=== PATIENT | female | born 1960 | race Caucasian/White ===

== ENCOUNTER 2023-11-26 09:00 | Inpatient (IN) | payer MEDICARE, OTHER ==
[~2023-11-26] VITALS: Ht 165.1 cm; Wt 95.5 kg
[2023-11-26] MEDS: ONDANSETRON HCL 4 MG/2 ML VIAL IV ONE (09:45)
[2023-11-26] MEDS: SODIUM CHLORIDE 0.9% 1,000 ML IV ONE ×2 (09:45→13:30)
[2023-11-26 10:05] VITALS: PULSE 109; RESP 20; O2SAT 100
[2023-11-26 10:08] LABS: Basophils # (auto) 0.1 10 ^3/uL (0-0.2); Basophils % (auto) 0.4 % (0.0-2.0); Eosinophils # (auto) 0 10 ^3/uL (0-0.8); Hematocrit 43.2 % (36.0-46.0); Hemoglobin 14.9 g/dL (12.2-16.2); Lymphocytes # (auto) 0.8 10 ^3/uL (0.4-5.4); Lymphocytes % (auto) 3.8 % (10.0-50.0); Mean Corpuscular Hemoglobin 30.5 pg (28.0-32.0); Mean Corpuscular Hgb Conc. 34.6 g/dL (32.0-36.0); Mean Corpuscular Volume 88.1 fL (80.0-100.0); Monocytes % (auto) 4.5 % (0.0-12.0); Neutrophils # (auto) 19.8 10 ^3/uL (1.6-8.6); Neutrophils % (auto) 91.3 % (37.0-80.0); Nucleated Red Blood Cells % 0.2 %; Platelet Count (auto) 242 10^3/uL (140-450); White Blood Cell 21.7 10^3/uL (4.4-10.8)
[2023-11-26 11:39] LABS: Alanine Aminotransferase 24 U/L (7-40); Albumin 4.7 g/dL (3.2-4.8); Alkaline Phosphatase 218 U/L (46-116); Anion Gap 11 (5-15); Aspartate Aminotransferase 23 U/L (13-40); Bilirubin, Total 0.8 mg/dL (0.2-1.0); Blood Urea Nitrogen 23 mg/dL (9-23); Carbon Dioxide 28 mmol/L (20-31); Chloride 107 mmol/L (98-107); Potassium 2.7 mmol/L (3.5-5.1); Sodium 146 mmol/L (136-145); Total Protein 7.6 g/dL (5.7-8.2)
[2023-11-26 11:41] LABS: Calcium 19.1 mg/dL (8.7-10.4); Glucose 426 mg/dL (74-106)
[2023-11-26] MEDS: POTASSIUM CHL 20MEQ/100ML 100 ML IV SCH ×2 (12:10→20:57)
[2023-11-26] MEDS ORDERED: NITROGLYCERIN 0.4 MG SL TAB SL PRN (13:30)
[2023-11-26] MEDS: PAMIDRONATE DISODIUM 90 MG in SOD CHL 0.45% 1,000 ML IV ONE (13:30)
[2023-11-26] MEDS: PIPERACILLIN-TAZOB 3.375GM 100 ML IV ONE (13:30)
[2023-11-26] MEDS ORDERED: DEXTROSE (50%) 50ML SYRG IV PRN (13:30)
[2023-11-26] MEDS: PANTOPRAZOLE 40 MG/10 ML VIAL INJ IV ONE (13:30)
[2023-11-26] MEDS: LACTATED RINGER'S 1,000 ML IV SCH (13:30)
[2023-11-26] MEDS: MORPHINE SULFATE INJ 2 MG/ml SYRG IV ONE (13:52)
[2023-11-26] MEDS: ONDANSETRON HCL 4 MG/2 ML VIAL IV PRN (13:53)
[2023-11-26] MEDS: InsuLIN REG 1unit/0.01ml Soln (100units/ml) IV ONE (13:56)
[2023-11-26 14:01] LABS: Magnesium 1.8 mg/dL (1.6-2.6)
[2023-11-26 14:02] LABS: Phosphorus 1.6 mg/dL (2.4-5.1)
[2023-11-26 14:32] LABS: Urine Bacteria FEW /hpf (None Seen); Urine Blood 1+ /uL (Negative); Urine Clarity Turbid (Clear); Urine Color Colorless (Yellow); Urine Protein, UAD TRACE (Negative); Urine Specific Gravity 1.012 (1.001-1.035); Urine Urobilinogen Normal (Negative); Urine WBC 13 /hpf (0 - 5); Urine pH 5.5 (5.0-9.0)
[2023-11-26 14:41] LABS: Amphetamine Screen, Urine Neg (NEGATIVE); Barbiturate Scree,Urine Neg (NEGATIVE); Benzodiazephine Screen, Urine Neg (NEGATIVE); Cannabinoid Screen, Urine Neg (NEGATIVE); Cocaine Screen, Urine Neg (NEGATIVE); Creatinine, Urine 49.65 mg/dL (30.0-125.0); Opiate Scree,Urine Neg (NEGATIVE); Phencyclidine Screen, Urine Neg (NEGATIVE)
[2023-11-26 14:44] LABS: Lactic Acid w/Reflex 2.2 mmol/L (0.4-2.0)
[2023-11-26 16:27] VITALS: BP 128/77; PULSE 101; RESP 18; TEMP 98.1; O2SAT 96
[2023-11-26 17:55] LABS: Base Excess 1.9 mmol/L (-2.0-3.0)
[2023-11-26] MEDS ORDERED: PIPERACILLIN-TAZOB 3.375GM 100 ML IV SCH (18:00)
[2023-11-26 18:08] VITALS: PULSE 93
[2023-11-26] MEDS: ACCU-CHEK COMFORT CURVE STRIP VI SCH (18:08)
[2023-11-26] MEDS: InsuLIN REG 1unit/0.01ml Soln (100units/ml) SC SCH (18:09)
[2023-11-26 19:09] LABS: Potassium 2.8 mmol/L (3.5-5.1)
[2023-11-26 19:22] LABS: Calcium 17.6 mg/dL (8.7-10.4)
[2023-11-26] MEDS ORDERED: POTASSIUM PHOSPHATE 44 MEQ in D5W 5% 250 ML IV ONE (19:45)
[2023-11-26 20:00] VITALS: PULSE 98; RESP 18; O2SAT 95
[2023-11-26] MEDS: PIPERACILLIN-TAZOB 3.375GM 100 ML IV SCH (20:07)
[2023-11-26 21:00] VITALS: BP 146/80; PULSE 102; RESP 20; TEMP 98.6; O2SAT 99
[2023-11-26] MEDS: PANTOPRAZOLE 40 MG/10 ML VIAL INJ IV SCH (21:41)
[2023-11-27] VITALS (9 sets, daily range): BP systolic 133–160; BP diastolic 67–94; PULSE 84–102; RESP 17–20; TEMP 89.9–99; O2SAT 92–100
[2023-11-27 06:48] LABS: Basophils # (auto) 0 10 ^3/uL (0-0.2); Eosinophils # (auto) 0 10 ^3/uL (0-0.8); Hematocrit 40.7 % (36.0-46.0); Hemoglobin 14.1 g/dL (12.2-16.2); Lymphocytes # (auto) 1.2 10 ^3/uL (0.4-5.4); Lymphocytes % (auto) 7.3 % (10.0-50.0); Mean Corpuscular Hemoglobin 30.9 pg (28.0-32.0); Mean Corpuscular Hgb Conc. 34.6 g/dL (32.0-36.0); Mean Corpuscular Volume 89.4 fL (80.0-100.0); Monocytes % (auto) 6.6 % (0.0-12.0); Neutrophils # (auto) 13.6 10 ^3/uL (1.6-8.6); Neutrophils % (auto) 86.1 % (37.0-80.0); Platelet Count (auto) 200 10^3/uL (140-450); Red Blood Cells 4.56 10^6/uL (4.0-5.20); Red Cell Distribution Width 13.3 % (11.8-14.3); White Blood Cell 15.9 10^3/uL (4.4-10.8)
[2023-11-27 07:10] LABS: Alanine Aminotransferase 18 U/L (7-40); Albumin 3.8 g/dL (3.2-4.8); Alkaline Phosphatase 172 U/L (46-116); Anion Gap 8 (5-15); Aspartate Aminotransferase 17 U/L (13-40); BUN/Creatinine Ratio 10.8 (10.0-20.0); Bilirubin, Total 0.5 mg/dL (0.2-1.0); Blood Urea Nitrogen 13 mg/dL (9-23); Carbon Dioxide 26 mmol/L (20-31); Glucose 168 mg/dL (74-106); Potassium 3.1 mmol/L (3.5-5.1); Total Protein 6.6 g/dL (5.7-8.2)
[2023-11-27 07:41] LABS: Chloride 119 mmol/L (98-107); Sodium 153 mmol/L (136-145)
[2023-11-27 07:42] LABS: Calcium 17.5 mg/dL (8.7-10.4)
[2023-11-27 07:52] LABS: Lipase 49 U/L (12-53)
[2023-11-27] MEDS: POTASSIUM PHOSPHATE 44 MEQ in D5W 5% 250 ML IV ONE (09:09)
[2023-11-27] MEDS: SOD CHL 0.45% 1,000 ML IV SCH (16:47)
[2023-11-28] VITALS (10 sets, daily range): BP systolic 121–161; BP diastolic 44–93; PULSE 72–95; RESP 13–18; TEMP 98–98.9; O2SAT 95–100
[2023-11-28 08:17] LABS: Basophils # (auto) 0 10 ^3/uL (0-0.2); Basophils % (auto) 0.1 % (0.0-2.0); Eosinophils # (auto) 0 10 ^3/uL (0-0.8); Eosinophils % (auto) 0.1 % (0.0-7.0); Hematocrit 44.9 % (36.0-46.0); Hemoglobin 15.2 g/dL (12.2-16.2); Lymphocytes # (auto) 1.5 10 ^3/uL (0.4-5.4); Lymphocytes % (auto) 14.2 % (10.0-50.0); Mean Corpuscular Hemoglobin 30.9 pg (28.0-32.0); Mean Corpuscular Hgb Conc. 33.8 g/dL (32.0-36.0); Mean Corpuscular Volume 91.2 fL (80.0-100.0); Monocytes # (auto) 0.7 10 ^3/uL (0-1.3); Monocytes % (auto) 6.4 % (0.0-12.0); Neutrophils # (auto) 8.6 10 ^3/uL (1.6-8.6); Neutrophils % (auto) 79.2 % (37.0-80.0); Nucleated Red Blood Cells % 0.1 %; Platelet Count (auto) 178 10^3/uL (140-450); Red Blood Cells 4.93 10^6/uL (4.0-5.20); Red Cell Distribution Width 13.6 % (11.8-14.3); White Blood Cell 10.8 10^3/uL (4.4-10.8)
[2023-11-28 08:26] LABS: Anion Gap 12 (5-15); Carbon Dioxide 25 mmol/L (20-31); Chloride 118 mmol/L (98-107); Potassium 3.5 mmol/L (3.5-5.1); Sodium 155 mmol/L (136-145)
[2023-11-28 08:32] LABS: BUN/Creatinine Ratio 15.1 (10.0-20.0); Blood Urea Nitrogen 22 mg/dL (9-23); Glucose 196 mg/dL (74-106)
[2023-11-28 08:42] LABS: Calcium 14.8 mg/dL (8.7-10.4)
[2023-11-28 09:43] LABS: Hepatitis B Surface Antigen Negative (Negative)
[2023-11-28 10:03] LABS: Hepatitis C Antibody Negative (Negative)
[2023-11-28] MEDS: hydrALAZINE HCL 20 MG/ML VL IV PRN (17:44)
[2023-11-29] VITALS (8 sets, daily range): BP systolic 127–148; BP diastolic 47–83; PULSE 68–96; RESP 14–16; TEMP 97.9–98.8; O2SAT 96–98
[2023-11-29 07:27] LABS: Alanine Aminotransferase 41 U/L (7-40); Albumin 3.6 g/dL (3.2-4.8); Alkaline Phosphatase 149 U/L (46-116); Anion Gap 7 (5-15); Aspartate Aminotransferase 39 U/L (13-40); BUN/Creatinine Ratio 14.8 (10.0-20.0); Bilirubin, Total 1.2 mg/dL (0.2-1.0); Blood Urea Nitrogen 20 mg/dL (9-23); Carbon Dioxide 27 mmol/L (20-31); Chloride 116 mmol/L (98-107); Glucose 168 mg/dL (74-106); Potassium 3.2 mmol/L (3.5-5.1)
[2023-11-29 07:28] LABS: Total Protein 5.9 g/dL (5.7-8.2)
[2023-11-29 07:29] LABS: Sodium 150 mmol/L (136-145)
[2023-11-29 07:34] LABS: Calcium 13.2 mg/dL (8.7-10.4)
[2023-11-29 08:06] LABS: Immunoglobulin A 234 mg/dL (87-352); Immunoglobulin G, Serum 899 mg/dL (586-1602); Immunoglobulin M 182 mg/dL (26-217)
[2023-11-29] MEDS ORDERED: POTASSIUM CHL 20 Meq TABLET PO ONE (10:30)
[2023-11-29] MEDS: cefTRIAXone 1GM/50ML D5W 50 ML IV ONE (11:08)
[2023-11-29] MEDS: POTASSIUM EFFERVESENT TAB 25 MEQ PO ONE (11:41)
[2023-11-29] MEDS: SOD CHL 0.45% 1,000 ML IV SCH (11:49)
[2023-11-29] MEDS: metroNIDAZOLE 500MG/100ML 100 ML IV SCH (14:39)
[2023-11-30] VITALS (8 sets, daily range): BP systolic 112–151; BP diastolic 48–69; PULSE 77–90; RESP 13–19; TEMP 97.8–98.4; O2SAT 96–99
[2023-11-30 05:08] LABS: Albumin 2.6 g/dL (2.9-4.4); Alpha-1-Globulin 0.3 g/dL (0.0-0.4); Alpha-2-Globulin 0.9 g/dL (0.4-1.0); Globulin Total 3.3 g/dL (2.2-3.9); Protein Total Serum 5.9 g/dL (6.0-8.5)
[2023-11-30 07:01] LABS: Alanine Aminotransferase 39 U/L (7-40); Albumin 3.3 g/dL (3.2-4.8); Alkaline Phosphatase 126 U/L (46-116); Anion Gap 7 (5-15); Aspartate Aminotransferase 26 U/L (13-40); BUN/Creatinine Ratio 10.2 (10.0-20.0); Blood Urea Nitrogen 12 mg/dL (9-23); Calcium 12.8 mg/dL (8.7-10.4); Carbon Dioxide 24 mmol/L (20-31); Chloride 113 mmol/L (98-107); Glucose 126 mg/dL (74-106); Potassium 3.1 mmol/L (3.5-5.1); Sodium 144 mmol/L (136-145)
[2023-11-30 07:02] LABS: Bilirubin, Total 0.8 mg/dL (0.2-1.0); Total Protein 5.8 g/dL (5.7-8.2)
[2023-11-30] MEDS: cefTRIAXone 1GM/50ML D5W 50 ML IV SCH (07:52)
[2023-11-30] MEDS: MAGNESIUM SULFATE 1GM/100ML 100 ML IV SCH (14:11)
[2023-11-30] MEDS: POTASSIUM EFFERVESENT TAB 25 MEQ PO SCH (14:18)
[2023-12-01 01:00] VITALS: BP 127/65; PULSE 78; RESP 18; TEMP 98.2; O2SAT 99
[2023-12-01 05:00] VITALS: BP 125/65; PULSE 78; RESP 20; TEMP 97.8; O2SAT 100
[2023-12-01 08:06] LABS: AFP Serum Tumor Marker 2.5 ng/mL (0.0-9.2); CA 27.29 19.4 U/mL (0.0-38.6); Cancer Antigen (CA) 125 46.1 U/mL (0.0-38.1)
[2023-12-01 09:00] VITALS: BP 139/78; PULSE 77; RESP 17; TEMP 97.1; O2SAT 99
[2023-12-01 13:00] VITALS: BP 146/55; PULSE 79; RESP 17; TEMP 97.5; O2SAT 99
[2023-12-01 13:10] LABS: Alanine Aminotransferase 33 U/L (7-40); Albumin 3.4 g/dL (3.2-4.8); Alkaline Phosphatase 129 U/L (46-116); Anion Gap 7 (5-15); Aspartate Aminotransferase 24 U/L (13-40); BUN/Creatinine Ratio 12.9 (10.0-20.0); Blood Urea Nitrogen 15 mg/dL (9-23); Carbon Dioxide 25 mmol/L (20-31); Chloride 111 mmol/L (98-107); Glucose 219 mg/dL (74-106); Sodium 143 mmol/L (136-145)
[2023-12-01 13:11] LABS: Bilirubin, Total 0.5 mg/dL (0.2-1.0); Total Protein 5.7 g/dL (5.7-8.2)
[2023-12-01 13:19] LABS: Calcium 13.1 mg/dL (8.7-10.4)
[2023-12-01 17:00] VITALS: BP 135/58; PULSE 75; RESP 17; TEMP 97.6; O2SAT 96
[2023-12-01] MEDS: POTASSIUM CHL 20MEQ/100ML 100 ML IV ONE (18:44)
[2023-12-02 01:00] VITALS: BP 130/52; PULSE 85; RESP 16; TEMP 98; O2SAT 95
[2023-12-02 05:00] VITALS: BP 104/52; PULSE 77; RESP 16; TEMP 98; O2SAT 98
[2023-12-02 07:07] LABS: RPR Non Reactive (Non Reactive)
[2023-12-02 08:06] LABS: Anion Gap 9 (5-15); Carbon Dioxide 18 mmol/L (20-31)
[2023-12-02 08:08] LABS: Calcium 9.2 mg/dL (8.7-10.4)
[2023-12-02 08:12] LABS: Glucose 123 mg/dL (74-106)
[2023-12-02 08:13] LABS: BUN/Creatinine Ratio 9.9 (10.0-20.0); Blood Urea Nitrogen 8 mg/dL (9-23)
[2023-12-02 08:15] LABS: Chloride 121 mmol/L (98-107); Sodium 148 mmol/L (136-145)
[2023-12-02 08:18] LABS: Potassium 2.2 mmol/L (3.5-5.1)
[2023-12-02] MEDS ORDERED: POTASSIUM CHL 20MEQ/100ML 100 ML IV SCH (08:45)
[2023-12-02 09:00] VITALS: BP 130/56; PULSE 80; RESP 18; TEMP 98; O2SAT 99
[2023-12-02] MEDS: POTASSIUM CHL 20 Meq TABLET PO ONE (09:52)
[2023-12-02] MEDS: POTASSIUM CHL 20MEQ/100ML 100 ML IV SCH (09:53)
[2023-12-02 12:49] LABS: Chloride 113 mmol/L (98-107); Potassium 4.2 mmol/L (3.5-5.1); Sodium 141 mmol/L (136-145)
[2023-12-02 12:50] LABS: Anion Gap 5 (5-15); Carbon Dioxide 23 mmol/L (20-31)
[2023-12-02 12:55] LABS: BUN/Creatinine Ratio 6.6 (10.0-20.0); Blood Urea Nitrogen 8 mg/dL (9-23); Glucose 251 mg/dL (74-106)
[2023-12-02 13:00] VITALS: BP 136/73; PULSE 91; RESP 20; TEMP 98.2; O2SAT 96
[2023-12-02 13:26] LABS: Calcium 13.8 mg/dL (8.7-10.4)
[2023-12-02] MEDS: SOD CHL 0.45% 1,000 ML IV SCH (13:32)
[2023-12-02] MEDS: SODIUM CHLORIDE 0.9% 1,000 ML IV ONE (15:24)
[2023-12-02 17:00] VITALS: BP 151/59; PULSE 85; RESP 20; TEMP 98.1; O2SAT 96
[2023-12-02 21:00] VITALS: BP 107/74; PULSE 89; RESP 16; TEMP 98; O2SAT 98
[2023-12-03] VITALS (7 sets, daily range): BP systolic 81–125; BP diastolic 48–70; PULSE 76–88; RESP 16–20; TEMP 97.6–98.2; O2SAT 96–98
[2023-12-03 11:56] LABS: Chloride 113 mmol/L (98-107); Potassium 3.2 mmol/L (3.5-5.1); Sodium 142 mmol/L (136-145)
[2023-12-03 11:57] LABS: Anion Gap 7 (5-15); Carbon Dioxide 22 mmol/L (20-31)
[2023-12-03 12:02] LABS: Alanine Aminotransferase 93 U/L (7-40); Albumin 3.6 g/dL (3.2-4.8); Alkaline Phosphatase 130 U/L (46-116); Aspartate Aminotransferase 98 U/L (13-40); BUN/Creatinine Ratio 7.1 (10.0-20.0); Bilirubin, Total 0.3 mg/dL (0.2-1.0); Blood Urea Nitrogen 8 mg/dL (9-23); Carbon Dioxide 22 mmol/L (20-31); Glucose 213 mg/dL (74-106); Potassium 3.2 mmol/L (3.5-5.1); Sodium 141 mmol/L (136-145); Total Protein 6.3 g/dL (5.7-8.2)
[2023-12-03 12:32] LABS: Anion Gap 7 (5-15); BUN/Creatinine Ratio 6.4 (10.0-20.0); Blood Urea Nitrogen 7 mg/dL (9-23); Chloride 112 mmol/L (98-107)
[2023-12-03] MEDS: SODIUM CHLORIDE 0.9% 1,000 ML IV SCH (12:48)
[2023-12-03] MEDS: POTASSIUM CHL 20 Meq TABLET PO ONE (21:05)
[2023-12-03] MEDS: CALCITONIN 400unit/2ml Vial (200unit/ml) SC SCH (21:09)
[2023-12-04] VITALS (7 sets, daily range): BP systolic 114–131; BP diastolic 64–74; PULSE 74–102; RESP 16–22; TEMP 97.8–98.3; O2SAT 94–99
[2023-12-04 08:09] LABS: Basophils # (auto) 0 10 ^3/uL (0-0.2); Basophils % (auto) 0.4 % (0.0-2.0); Eosinophils # (auto) 0.3 10 ^3/uL (0-0.8); Eosinophils % (auto) 5.5 % (0.0-7.0); Hematocrit 38.3 % (36.0-46.0); Hemoglobin 12.8 g/dL (12.2-16.2); Lymphocytes # (auto) 1.4 10 ^3/uL (0.4-5.4); Mean Corpuscular Hemoglobin 30.5 pg (28.0-32.0); Mean Corpuscular Hgb Conc. 33.4 g/dL (32.0-36.0); Mean Corpuscular Volume 91.3 fL (80.0-100.0); Monocytes # (auto) 0.5 10 ^3/uL (0-1.3); Neutrophils % (auto) 63.1 % (37.0-80.0); Nucleated Red Blood Cells % 0.1 %; Platelet Count (auto) 166 10^3/uL (140-450); Red Cell Distribution Width 13.6 % (11.8-14.3); White Blood Cell 6.3 10^3/uL (4.4-10.8)
[2023-12-04 08:40] LABS: INR 1.07 (0.9-1.15); Partial Thromboplastin Time 21.1 SEC (24.5-34.5); Prothrombin Time 11.3 sec (9.3-11.8)
[2023-12-04] MEDS: DOCUSATE SOD 100 MG CAP PO PRN (09:46)
[2023-12-04] MEDS: MORPHINE SULFATE INJ 2 MG/ml SYRG IV PRN (09:49)
[2023-12-04 10:27] LABS: Chloride 116 mmol/L (98-107); Potassium 3.2 mmol/L (3.5-5.1); Sodium 145 mmol/L (136-145)
[2023-12-04 10:28] LABS: Anion Gap 5 (5-15); Carbon Dioxide 24 mmol/L (20-31)
[2023-12-04] MEDS: ZOLEDRONIC ACID 4 MG in SODIUM CHL 0.9% 100 ML IV ONE ×2 (10:31→17:53)
[2023-12-04 10:33] LABS: Blood Urea Nitrogen 9 mg/dL (9-23); Glucose 119 mg/dL (74-106)
[2023-12-04 10:39] LABS: Calcium 14.3 mg/dL (8.7-10.4)
[2023-12-04 16:30] LABS: Alanine Aminotransferase 83 U/L (7-40); Albumin 3.6 g/dL (3.2-4.8); Alkaline Phosphatase 137 U/L (46-116); Anion Gap 6 (5-15); Aspartate Aminotransferase 57 U/L (13-40); BUN/Creatinine Ratio 7.9 (10.0-20.0); Blood Urea Nitrogen 9 mg/dL (9-23); Carbon Dioxide 21 mmol/L (20-31); Chloride 112 mmol/L (98-107); Glucose 265 mg/dL (74-106); Potassium 3.4 mmol/L (3.5-5.1); Sodium 139 mmol/L (136-145)
[2023-12-04 16:31] LABS: Bilirubin, Total 0.3 mg/dL (0.2-1.0); Total Protein 6.2 g/dL (5.7-8.2)
[2023-12-04 16:41] LABS: Calcium 13.1 mg/dL (8.7-10.4)
[2023-12-04] MEDS: POTASSIUM CHL 20 Meq TABLET PO ONE (18:45)
[2023-12-05] VITALS (11 sets, daily range): BP systolic 99–133; BP diastolic 58–73; PULSE 62–86; RESP 12–22; TEMP 97.9–98.4; O2SAT 93–99
[2023-12-05 07:48] LABS: Alanine Aminotransferase 70 U/L (7-40); Albumin 3.4 g/dL (3.2-4.8); Alkaline Phosphatase 136 U/L (46-116); Anion Gap 8 (5-15); BUN/Creatinine Ratio 6.9 (10.0-20.0); Blood Urea Nitrogen 7 mg/dL (9-23); Calcium 12.1 mg/dL (8.7-10.4); Carbon Dioxide 21 mmol/L (20-31); Chloride 115 mmol/L (98-107); Glucose 147 mg/dL (74-106); Potassium 3.3 mmol/L (3.5-5.1); Sodium 144 mmol/L (136-145)
[2023-12-05 07:49] LABS: Aspartate Aminotransferase 49 U/L (13-40); Bilirubin, Total 0.3 mg/dL (0.2-1.0); Total Protein 5.9 g/dL (5.7-8.2)
[2023-12-05] MEDS: POTASSIUM EFFERVESENT TAB 25 MEQ PO ONE (08:15)
[2023-12-05 09:57] LABS: Urine Bacteria None Seen /hpf (None Seen)
[2023-12-05 10:44] LABS: Urine Blood Negative /uL (Negative); Urine Clarity Clear (Clear); Urine Color Light-Yellow (Yellow); Urine Protein, UAD Negative (Negative); Urine Specific Gravity 1.007 (1.001-1.035); Urine Urobilinogen Normal (Negative); Urine WBC 1 /hpf (0 - 5)
[2023-12-05] MEDS: MAGNESIUM SULFATE 1GM/100ML 100 ML IV SCH (12:26)
[2023-12-05] MEDS ORDERED: GLYCOPYRROLATE 0.2 MG/ML 1ML VIAL ONE (13:04)
[2023-12-05] MEDS ORDERED: fentaNYL CITRATE 100 MCG/2 ML VL ONE (13:04)
[2023-12-05] MEDS ORDERED: PROPOFOL 10 MG/ML 20 ML IV ONE (13:04)
[2023-12-05] MEDS ORDERED: MIDAZOLAM HCL 2MG/2ML 2ml VIAL (1mg/ml) ONE (13:04)
[2023-12-05] MEDS ORDERED: ONDANSETRON HCL 4 MG/2 ML VIAL ONE (13:04)
[2023-12-05] MEDS: ACCU-CHEK COMFORT CURVE STRIP VI ONE (13:45)
[2023-12-05] MEDS: POTASSIUM CHLORIDE 40 MEQ, LIDOCAINE 1% (LOCAL ANESTH.) 4 ML in SODIUM CHL 0.9% 250 ML IV ONE (18:13)
[2023-12-06] VITALS (8 sets, daily range): BP systolic 112–136; BP diastolic 54–93; PULSE 64–89; RESP 17–20; TEMP 97.2–98.2; O2SAT 96–100
[2023-12-06 07:52] LABS: Alanine Aminotransferase 53 U/L (7-40); Albumin 3.5 g/dL (3.2-4.8); Alkaline Phosphatase 135 U/L (46-116); Anion Gap 7 (5-15); Aspartate Aminotransferase 28 U/L (13-40); BUN/Creatinine Ratio 9.6 (10.0-20.0); Blood Urea Nitrogen 10 mg/dL (9-23); Calcium 11.5 mg/dL (8.7-10.4); Carbon Dioxide 20 mmol/L (20-31); Chloride 116 mmol/L (98-107); Glucose 173 mg/dL (74-106); Potassium 3.6 mmol/L (3.5-5.1); Sodium 143 mmol/L (136-145)
[2023-12-06 07:53] LABS: Bilirubin, Total 0.3 mg/dL (0.2-1.0)
[2023-12-06] MEDS: POTASSIUM EFFERVESENT TAB 25 MEQ PO SCH (10:14)
[2023-12-07] VITALS (7 sets, daily range): BP systolic 98–130; BP diastolic 51–79; PULSE 73–89; RESP 14–21; TEMP 97.5–98.2; O2SAT 96–98
[2023-12-07 07:19] LABS: Basophils # (auto) 0 10 ^3/uL (0-0.2); Basophils % (auto) 0.4 % (0.0-2.0); Eosinophils # (auto) 0.1 10 ^3/uL (0-0.8); Eosinophils % (auto) 1.1 % (0.0-7.0); Hemoglobin 11.4 g/dL (12.2-16.2); Lymphocytes # (auto) 1.6 10 ^3/uL (0.4-5.4); Lymphocytes % (auto) 21.1 % (10.0-50.0); Mean Corpuscular Hemoglobin 31.6 pg (28.0-32.0); Mean Corpuscular Hgb Conc. 34.6 g/dL (32.0-36.0); Mean Corpuscular Volume 91.2 fL (80.0-100.0); Monocytes # (auto) 0.4 10 ^3/uL (0-1.3); Monocytes % (auto) 5.5 % (0.0-12.0); Neutrophils # (auto) 5.4 10 ^3/uL (1.6-8.6); Neutrophils % (auto) 71.9 % (37.0-80.0); Platelet Count (auto) 149 10^3/uL (140-450); Red Blood Cells 3.61 10^6/uL (4.0-5.20); Red Cell Distribution Width 13.6 % (11.8-14.3); White Blood Cell 7.6 10^3/uL (4.4-10.8)
[2023-12-07 07:20] LABS: INR 1.1 (0.9-1.15); Partial Thromboplastin Time 23.5 SEC (24.5-34.5); Prothrombin Time 11.6 sec (9.3-11.8)
[2023-12-07 07:44] LABS: Alanine Aminotransferase 39 U/L (7-40); Alkaline Phosphatase 134 U/L (46-116); Anion Gap 7 (5-15); Blood Urea Nitrogen 7 mg/dL (9-23); Calcium 11.2 mg/dL (8.7-10.4); Carbon Dioxide 19 mmol/L (20-31); Chloride 114 mmol/L (98-107); Glucose 154 mg/dL (74-106); Potassium 3.3 mmol/L (3.5-5.1); Sodium 140 mmol/L (136-145)
[2023-12-07 07:45] LABS: Albumin 3.4 g/dL (3.2-4.8); Aspartate Aminotransferase 21 U/L (13-40); Bilirubin, Total 0.3 mg/dL (0.2-1.0); Total Protein 5.7 g/dL (5.7-8.2)
[2023-12-07] MEDS ORDERED: ACETAMINOPHEN 325 MG TAB PO PRN (14:45)
[2023-12-07] MEDS: ENOXAPARIN SOD 40 MG/0.4 ML SYRINGE SC ONE (21:09)
[2023-12-07] MEDS: SODIUM CHLORIDE 0.9% 1,000 ML IV SCH (23:50)
[2023-12-08] VITALS (9 sets, daily range): BP systolic 104–123; BP diastolic 54–66; PULSE 74–94; RESP 13–18; TEMP 97.7–98.1; O2SAT 96–99
[2023-12-08 07:44] LABS: Alanine Aminotransferase 36 U/L (7-40); Albumin 3.3 g/dL (3.2-4.8); Alkaline Phosphatase 144 U/L (46-116); Anion Gap 6 (5-15); Aspartate Aminotransferase 24 U/L (13-40); BUN/Creatinine Ratio 6.4 (10.0-20.0); Bilirubin, Total 0.4 mg/dL (0.2-1.0); Blood Urea Nitrogen 6 mg/dL (9-23); Calcium 11.4 mg/dL (8.7-10.4); Carbon Dioxide 22 mmol/L (20-31); Chloride 112 mmol/L (98-107); Glucose 138 mg/dL (74-106); Sodium 140 mmol/L (136-145); Total Protein 5.5 g/dL (5.7-8.2)
[2023-12-08] MEDS: MAGNESIUM SULFATE 1GM/100ML 100 ML IV ONE (08:24)
[2023-12-08] MEDS: ENOXAPARIN SOD 40 MG/0.4 ML SYRINGE SC SCH (10:13)
[2023-12-09] VITALS (7 sets, daily range): BP systolic 101–128; BP diastolic 36–67; PULSE 70–91; RESP 18–20; TEMP 97.6–99; O2SAT 97–99
[2023-12-09 07:15] LABS: Alanine Aminotransferase 29 U/L (7-40); Alkaline Phosphatase 140 U/L (46-116); Anion Gap 7 (5-15); Aspartate Aminotransferase 19 U/L (13-40); BUN/Creatinine Ratio 6.7 (10.0-20.0); Blood Urea Nitrogen 6 mg/dL (9-23); Calcium 11.7 mg/dL (8.7-10.4); Carbon Dioxide 21 mmol/L (20-31); Chloride 111 mmol/L (98-107); Glucose 173 mg/dL (74-106); Potassium 3.8 mmol/L (3.5-5.1); Sodium 139 mmol/L (136-145)
[2023-12-09 07:16] LABS: Albumin 3.3 g/dL (3.2-4.8); Bilirubin, Total 0.4 mg/dL (0.2-1.0); Total Protein 5.6 g/dL (5.7-8.2)
[2023-12-09] MEDS: LACTATED RINGER'S 1,000 ML IV SCH (17:58)
[2023-12-10] VITALS (8 sets, daily range): BP systolic 103–125; BP diastolic 52–76; PULSE 75–103; RESP 18–20; TEMP 97.6–98.3; O2SAT 95–100
[2023-12-10 06:36] LABS: Alanine Aminotransferase 26 U/L (7-40); Albumin 3.6 g/dL (3.2-4.8); Alkaline Phosphatase 150 U/L (46-116); Anion Gap 6 (5-15); Aspartate Aminotransferase 20 U/L (13-40); Bilirubin, Total 0.4 mg/dL (0.2-1.0); Calcium 11.7 mg/dL (8.7-10.4); Carbon Dioxide 20 mmol/L (20-31); Chloride 112 mmol/L (98-107); Glucose 140 mg/dL (74-106); Potassium 4.2 mmol/L (3.5-5.1); Sodium 138 mmol/L (136-145); Total Protein 5.9 g/dL (5.7-8.2)
[2023-12-10 06:46] LABS: BUN/Creatinine Ratio 5.7 (10.0-20.0); Blood Urea Nitrogen < 5 mg/dL (9-23)
[2023-12-11] VITALS (7 sets, daily range): BP systolic 106–130; BP diastolic 45–72; PULSE 64–86; RESP 17–20; TEMP 97.7–98.5; O2SAT 96–99
[2023-12-11 07:56] LABS: Basophils # (auto) 0 10 ^3/uL (0-0.2); Basophils % (auto) 0.7 % (0.0-2.0); Eosinophils # (auto) 0.1 10 ^3/uL (0-0.8); Eosinophils % (auto) 2.7 % (0.0-7.0); Hematocrit 32.9 % (36.0-46.0); Hemoglobin 11.3 g/dL (12.2-16.2); Lymphocytes # (auto) 1.4 10 ^3/uL (0.4-5.4); Lymphocytes % (auto) 26.4 % (10.0-50.0); Mean Corpuscular Hemoglobin 31.2 pg (28.0-32.0); Mean Corpuscular Hgb Conc. 34.4 g/dL (32.0-36.0); Mean Corpuscular Volume 90.5 fL (80.0-100.0); Monocytes # (auto) 0.4 10 ^3/uL (0-1.3); Monocytes % (auto) 8.2 % (0.0-12.0); Neutrophils # (auto) 3.3 10 ^3/uL (1.6-8.6); Platelet Count (auto) 155 10^3/uL (140-450); Red Blood Cells 3.64 10^6/uL (4.0-5.20); Red Cell Distribution Width 13.7 % (11.8-14.3); White Blood Cell 5.3 10^3/uL (4.4-10.8)
[2023-12-11 07:57] LABS: Alanine Aminotransferase 24 U/L (7-40); Albumin 3.6 g/dL (3.2-4.8); Alkaline Phosphatase 161 U/L (46-116); Anion Gap 6 (5-15); Aspartate Aminotransferase 19 U/L (13-40); BUN/Creatinine Ratio 6.5 (10.0-20.0); Blood Urea Nitrogen 6 mg/dL (9-23); Calcium 12.4 mg/dL (8.7-10.4); Carbon Dioxide 23 mmol/L (20-31); Chloride 110 mmol/L (98-107); Glucose 124 mg/dL (74-106); Potassium 4.2 mmol/L (3.5-5.1); Sodium 139 mmol/L (136-145)
[2023-12-11 07:58] LABS: Bilirubin, Total 0.5 mg/dL (0.2-1.0); Total Protein 6.1 g/dL (5.7-8.2)
[2023-12-12] VITALS (8 sets, daily range): BP systolic 106–125; BP diastolic 42–78; PULSE 80–90; RESP 18–20; TEMP 97.8–98.5; O2SAT 96–100
[2023-12-12 06:31] LABS: Alanine Aminotransferase 23 U/L (7-40); Alkaline Phosphatase 175 U/L (46-116); Anion Gap 7 (5-15); Aspartate Aminotransferase 17 U/L (13-40); BUN/Creatinine Ratio 9.5 (10.0-20.0); Bilirubin, Total 0.4 mg/dL (0.2-1.0); Blood Urea Nitrogen 9 mg/dL (9-23); Calcium 12.8 mg/dL (8.7-10.4); Carbon Dioxide 24 mmol/L (20-31); Chloride 107 mmol/L (98-107); Glucose 138 mg/dL (74-106); Potassium 4.2 mmol/L (3.5-5.1); Sodium 138 mmol/L (136-145); Total Protein 6.6 g/dL (5.7-8.2)
[2023-12-12] MEDS: FAMOTIDINE (10MG/ML) 2ML VL IV SCH (09:14)
[2023-12-12 21:15] LABS: Urine Bacteria MOD /hpf (None Seen); Urine Blood 2+ /uL (Negative); Urine Budding Yeast MANY /hpf (None Seen); Urine Clarity Turbid (Clear); Urine Color Colorless (Yellow); Urine Protein, UAD TRACE (Negative); Urine Specific Gravity 1.007 (1.001-1.035); Urine Urobilinogen Normal (Negative); Urine WBC 47 /hpf (0 - 5); Urine pH 6.5 (5.0-9.0)
[2023-12-13] VITALS (8 sets, daily range): BP systolic 99–121; BP diastolic 48–72; PULSE 82–110; RESP 13–20; TEMP 97.8–99.2; O2SAT 94–100
[2023-12-13 05:43] LABS: Basophils # (auto) 0 10 ^3/uL (0-0.2); Basophils % (auto) 0.5 % (0.0-2.0); Eosinophils # (auto) 0.1 10 ^3/uL (0-0.8); Hematocrit 33.5 % (36.0-46.0); Hemoglobin 11.6 g/dL (12.2-16.2); Lymphocytes # (auto) 1.2 10 ^3/uL (0.4-5.4); Lymphocytes % (auto) 25.6 % (10.0-50.0); Mean Corpuscular Hemoglobin 31.1 pg (28.0-32.0); Mean Corpuscular Hgb Conc. 34.5 g/dL (32.0-36.0); Mean Corpuscular Volume 89.9 fL (80.0-100.0); Monocytes # (auto) 0.3 10 ^3/uL (0-1.3); Monocytes % (auto) 6.9 % (0.0-12.0); Neutrophils # (auto) 3.1 10 ^3/uL (1.6-8.6); Nucleated Red Blood Cells % 0.1 %; Platelet Count (auto) 182 10^3/uL (140-450); Red Blood Cells 3.73 10^6/uL (4.0-5.20); White Blood Cell 4.8 10^3/uL (4.4-10.8)
[2023-12-13 05:48] LABS: INR 1.01 (0.9-1.15); Partial Thromboplastin Time 22.3 SEC (24.5-34.5); Prothrombin Time 10.7 sec (9.3-11.8)
[2023-12-13 06:08] LABS: Alanine Aminotransferase 21 U/L (7-40); Albumin 3.7 g/dL (3.2-4.8); Alkaline Phosphatase 181 U/L (46-116); Anion Gap 4 (5-15); Aspartate Aminotransferase 17 U/L (13-40); BUN/Creatinine Ratio 7.4 (10.0-20.0); Blood Urea Nitrogen 7 mg/dL (9-23); Calcium 12.5 mg/dL (8.7-10.4); Carbon Dioxide 24 mmol/L (20-31); Chloride 110 mmol/L (98-107); Glucose 132 mg/dL (74-106); Potassium 4.4 mmol/L (3.5-5.1); Sodium 138 mmol/L (136-145)
[2023-12-13 06:09] LABS: Bilirubin, Total 0.4 mg/dL (0.2-1.0); Total Protein 6.3 g/dL (5.7-8.2)
[2023-12-13] MEDS ORDERED: FLUMAZENIL 0.1 MG/ML INJ 10ML MDV IV ONE (08:01)
[2023-12-13] MEDS ORDERED: NALOXONE HCL 0.4 MG/ML VIAL ONE (08:01)
[2023-12-13] MEDS ORDERED: LIDOCAINE 2% JELLY 11ml (GLYDO) ONE (08:01)
[2023-12-13] MEDS ORDERED: SODIUM CHLORIDE LOCK 10 ML ONE (08:02)
[2023-12-13] MEDS ORDERED: diphenhdrAMINE HCL 50 MG/1 ML VL ONE (08:02)
[2023-12-13] MEDS ORDERED: EPINEPHrine HCL 1 MG/1 ML AMP ONE (08:02)
[2023-12-13] MEDS ORDERED: LIDOCAINE 2%HCL (LOCAL ANESTH.) INJ 20ML MDV ONE (08:04)
[2023-12-13] MEDS: MIDAZOLAM HCL 5 MG/ML-1ML VIAL ONE (09:01)
[2023-12-13] MEDS: fentaNYL CITRATE 100 MCG/2 ML VL ONE (09:01)
[2023-12-13] MEDS: GLYCOPYRROLATE 0.2 MG/ML 1ML VIAL ONE (09:06)
[2023-12-14] VITALS (8 sets, daily range): BP systolic 93–115; BP diastolic 44–70; PULSE 73–87; RESP 16–20; TEMP 97.3–98.8; O2SAT 95–99
[2023-12-14 05:37] LABS: Alanine Aminotransferase 18 U/L (7-40); Albumin 3.9 g/dL (3.2-4.8); Alkaline Phosphatase 191 U/L (46-116); Anion Gap 8 (5-15); Aspartate Aminotransferase 16 U/L (13-40); BUN/Creatinine Ratio 6.7 (10.0-20.0); Bilirubin, Total 0.6 mg/dL (0.2-1.0); Blood Urea Nitrogen 6 mg/dL (9-23); Calcium 12.3 mg/dL (8.7-10.4); Carbon Dioxide 24 mmol/L (20-31); Chloride 106 mmol/L (98-107); Glucose 119 mg/dL (74-106); Potassium 4.3 mmol/L (3.5-5.1); Sodium 138 mmol/L (136-145); Total Protein 6.4 g/dL (5.7-8.2)
[2023-12-14] MEDS: HYDROcodone-ACET 10/325MG TAB PO PRN (10:05)
[2023-12-15 01:00] VITALS: BP 126/69; PULSE 87; RESP 18; TEMP 97.9; O2SAT 97
[2023-12-15 05:00] VITALS: BP 115/48; PULSE 79; RESP 18; TEMP 97.9; O2SAT 100
[2023-12-15 09:00] VITALS: BP 116/59; PULSE 78; RESP 20; TEMP 98.3; O2SAT 97
[2023-12-15 13:00] VITALS: BP 104/60; PULSE 83; RESP 20; TEMP 98.7; O2SAT 91
[2023-12-15 16:49] VITALS: BP_SYST 103; BP_SYST 110; BP_DIAS 52; BP_DIAS 70; PULSE 58; PULSE 64; RESP 20; TEMP 98.4; O2SAT 100; O2SAT 94
== END 2023-12-15 19:05 | disposition home or self-care (01) | DRG 871 ==
LOC: ER 09:00 → TELE 13:28 → ER 13:28 → TELE-CENTR 16:15 → CENTRAL 11-30 15:31
PROVIDERS: ADMIT Nurse Practitioner Family; ATTEND Student in an Organized Health Care Education/Training Program
PROC: 0DB98ZX Excision of Duodenum, Via Natural or Artificial Opening Endoscopic, Diagnostic (ICD-10-PCS; 2023-12-05)
PROC: 0DB68ZX Excision of Stomach, Via Natural or Artificial Opening Endoscopic, Diagnostic (ICD-10-PCS; 2023-12-05)
PROC: 0DB68ZZ Excision of Stomach, Via Natural or Artificial Opening Endoscopic (ICD-10-PCS; 2023-12-05)
PROC: 0B918ZX Drainage of Trachea, Via Natural or Artificial Opening Endoscopic, Diagnostic (ICD-10-PCS; principal; 2023-12-13 08:24)
DX: A41.9 Sepsis, unspecified organism (principal); G92.8 Other toxic encephalopathy; J96.01 Acute respiratory failure with hypoxia; K85.90 Acute pancreatitis without necrosis or infection, unspecified; N17.0 Acute kidney failure with tubular necrosis; K29.71 Gastritis, unspecified, with bleeding; K22.11 Ulcer of esophagus with bleeding; N39.0 Urinary tract infection, site not specified; E87.0 Hyperosmolality and hypernatremia; E87.1 Hypo-osmolality and hyponatremia; K52.9 Noninfective gastroenteritis and colitis, unspecified; E86.0 Dehydration; E87.6 Hypokalemia; I10 Essential (primary) hypertension; J45.909 Unspecified asthma, uncomplicated; B96.20 Unspecified Escherichia coli [E. coli] as the cause of diseases classified elsewhere; K22.9 Disease of esophagus, unspecified; E83.52 Hypercalcemia; F32.A Depression, unspecified; E11.65 Type 2 diabetes mellitus with hyperglycemia; R22.2 Localized swelling, mass and lump, trunk; E83.42 Hypomagnesemia; E66.9 Obesity, unspecified; K44.9 Diaphragmatic hernia without obstruction or gangrene; Z90.710 Acquired absence of both cervix and uterus; Z82.5 Family history of asthma and other chronic lower respiratory diseases; Z83.3 Family history of diabetes mellitus; Z83.2 Family history of diseases of the blood and blood-forming organs and certain disorders involving the immune mechanism; Z82.49 Family history of ischemic heart disease and other diseases of the circulatory system; Z68.34 Body mass index [BMI] 34.0-34.9, adult
CPT/HCPCS: 36415; 36600; 70450; 70491; 70551; 71045; 71250; 74176; 76705; 78070; 80048; 80053; 80307; 80320; 81001; 82010; 82105; 82140; 82306; 82310; 82330; 82378; 82550; 82570; 82784; 82805; 82962; 83036; 83605; 83690; 83735; 83930; 83935; 83970; 84100; 84132; 84155; 84165; 84300; 84443; 85025; 85610; 85730; 86300; 86301; 86304; 86334; 86592; 86703; 86803; 86850; 86900; 86901; 87040; 87086; 87088; 87186; 87340; 92610; 93005; 96365; 96375; 97110; 97116; 97163; 97530; G0378; J0171; J1815; J2003; J2250; J2405; J2470; J2543; J2704; J3480; J3489; J3490; J7060

== ENCOUNTER 2024-01-03 13:55 | Inpatient (IN) | payer MEDICARE, OTHER ==
[~2024-01-03] VITALS: Ht 160 cm; Wt 87.0 kg
[2024-01-03] MEDS: SODIUM CHLORIDE 0.9% 500 ML IV ONE (14:30)
--- NOTE | 2024-01-03 14:32 | ED.PDOC ---
History of Present Illness HPI Comments HPI: 63-year-old female accompanied by her daughter at bedside. History obtained from both. Patient went today to see her PCP for routine follow up after recent hospitalization admission and discharge on the 13 of December. Patient is awaiting to be seen by higher level of care at [facility] for biopsy of a known lung mass. Patient had some labs done today and was found with hypercalcemia of 15 and was sent here for further evaluation and treatment. Patient has a note from the treating provider that is states that the patient has history of hypercalcemia and is symptomatic with questionable Neoplastic syndrome and posterior mediastinal mass. He stated that the patient needs treatment and transferred to higher level of care. Vitals: temp: 98.2 RR: 18 02 sat: 96 % RA heart rate: 82 BP: 122/88 PMH: acute encephalopathy from hypercalcemia; hyperparathyroid of unknown source; posterior mediastinal mass, gastroenteritis, sepsis, hypertension, PSH: ,hysterectomy social history: denies tobacco use, denies ETOH use, denies drug use medications: unknown allergies: nkda HPI: Poor Historian. Past Medcial History: Past Surgical History: REVIEW OF SYSTEMS: CONSTITUTIONAL: Denies acute: fever, diaphoresis, chills, HEAD: Denies acute: headache, photophobia Eyes: Denies acute: Double vision, vision loss, eye pain, eye discharge. EARS: Denies acute: tinnitus, hearing loss, ear discharge, ear pain, THROAT: Denies acute: sore throat, swelling, difficulty swallowing , pain with swallowing, change in voice. NECK: Denies acute: neck pain, neck swelling, stiff neck. HEART: Denies acute : chest pain, palpitations, LUNGS: Denies acute: SOB, wheezing, cough, hemoptysis ABDOMEN: Denies acute: abdominal pain, diarrhea, melena , hematemesis, hematochezia SKIN: Denies acute: rash, redness, lesions, itchiness. EXTREMITIES: Denies acute: calf pain, numbness, tingling, weakness, denies pain in extremity. Denies acute: Low back pain. Neuro: Denies acute: focal neurological deficit, motor or sensory focal neurological deficit, tremors, seizure like activity, confusion, dizziness, change in mental status, loss of bowel or bladder function, cauda equina like symptoms. : Denies acute: dysuria, hematuria, flank pain, increase in urinary frequency. PSYCH: Denies acute: hallucination, suicidal ideation, homicidal ideation. FEMALE: Denies acute: abnormal vaginal bleeding, foul odor, unusual discharge. PHYSICAL EXAM: General: no acute distress, awake and alert. Head: normocephalic, atraumatic. Neck: supple, trachea is midline, no swelling. Throat: Normal phonation. Eyes:, no erythema, no purulent discharge, no proptosis, no icterus. Heart: regular rate, regular rhythm, no significant murmur appreciated. Lungs: no apparent respiratory distress, Able to speak in full sentences. No wheezing, no rhonchi, no crackles. No stridors Clear to auscultation bilaterally. Abdomen: non tender to palpation, non distended, soft, no guarding, no rebound, + bowel sounds. Neuro: Awake, Alert, oriented to name, self, situation, follows commands GCS=15. Speech is normal. Skin: no petechia, no purpura, no cyanosis, non-pale, not jaundice. Lower extremities: --trace bilateral - Pitting edema no deformity, no focal swelling, no calf TTP. Makes eye contact. moves all four extremities. Face: no apparent facial droop. No nuchal rigidity, Kernig's sign, Brudzinski's sign, no meningeal signs. Chief Complaint: Abnormal LAB's Time Seen by MD: 14:32 Reviewed Notes: Medications, Allergies Allergies: Coded Allergies: NO KNOWN ALLERGIES (Unverified , 11/26/23) Information Source: Patient, Relative Mode of Arrival: Wheelchair Past Medical History PAST MEDICAL HISTORY: DM, HTN Surgical History: , Hysterectomy DUMP ATTENDANT History: No Pertinent DUMP ATTENDANT History Family History Family History: Reviewed,noncontributory to illness, Unknown Social History Smoker: Non-Smoker Alcohol: Denies ETOH Use Drugs: Denies Drug Use Lives In: Home Was a procedure done? Was a procedure done?: No Differential Dx Considerations may include: Parathyroidism, neoplasm, thyroid disease, X-Ray, Labs, Meds, VS Vital Signs Date Time Temp Pulse Resp B/P (MAP) Pulse Ox O2 Delivery O2 Flow Rate FiO2 01/03/24 20:20 98.1 84 16 121/65 (83) 96 98.1 01/03/24 20:20 84 16 97 Room Air* 0 21 01/03/24 17:50 97.8 103 18 127/70 (89) 98 97.8 01/03/24 15:23 98.5 100 19 133/66 (88) 97 98.5 01/03/24 14:22 98.2 82 18 125/88 (100) 96 Lab Test 01/03/24 19:29 01/03/24 16:42 01/03/24 16:12 Range/Units Troponin I High Sensitivity 17 13 </=34 ng/L Lipase Pending Urine Color Yellow Yellow Urine Clarity Turbid H Clear Urine pH 5.5 5.0-9.0 Urine Specific [place] 1.017 1.001-1.035 Urine Protein Trace H Negative Urine Ketones 1+ H Negative Urine Blood Negative Negative /uL Urine Nitrite 2+ H Negative Urine Bilirubin Negative Negative Urine Urobilinogen Normal Negative mg/dL Urine Leukocyte Esterase 2+ Negative /uL Urine RBC <1 0 - 4 /hpf Urine WBC 79 0 - 5 /hpf Urine Squamous Epithelial Cells Few <5 /hpf Urine Calcium Oxalate Crystals Few None Seen Urine Bacteria Few H None Seen /hpf Urine Mucus Few None Seen Urine Glucose Normal Normal mg/dL White Blood Count 10.2 4.4-10.8 10^3/uL Red Blood Count 4.59 4.0-5.20 10^6/uL Hemoglobin 14.0 12.2-16.2 g/dL Hematocrit 41.2 36.0-46.0 % Mean Corpuscular Volume 89.8 80.0-100.0 fL Mean Corpuscular Hemoglobin 30.5 28.0-32.0 pg Mean Corpuscular Hemoglobin Concent 34.0 32.0-36.0 g/dL Red Cell Distribution Width 13.8 11.8-14.3 % Platelet Count 257 140-450 10^3/uL Mean Platelet Volume 8.7 6.9-10.8 fL Neutrophils (%) (Auto) 76.7 37.0-80.0 % Lymphocytes (%) (Auto) 15.1 10.0-50.0 % Monocytes (%) (Auto) 7.4 0.0-12.0 % Eosinophils (%) (Auto) 0.3 0.0-7.0 % Basophils (%) (Auto) 0.5 0.0-2.0 % Neutrophils # (Auto) 7.9 1.6-8.6 10 ^3/uL Lymphocytes # (Auto) 1.5 0.4-5.4 10 ^3/uL Monocytes # (Auto) 0.8 0-1.3 10 ^3/uL Eosinophils # (Auto) 0 0-0.8 10 ^3/uL Basophils # (Auto) 0.1 0-0.2 10 ^3/uL Nucleated Red Blood Cells 0.0 % Sodium Level 137 136-145 mmol/L Potassium Level 4.1 3.5-5.1 mmol/L Chloride Level 105 98-107 mmol/L Carbon Dioxide Level 24 20-31 mmol/L Anion Gap 8 5-15 Blood Urea Nitrogen 10 9-23 mg/dL Creatinine 0.96 0.550-1.02 mg/dL Glomerular Filtration Rate Calc 66 >90 mL/min BUN/Creatinine Ratio 10.4 10.0-20.0 Serum Glucose 189 H 74-106 mg/dL Lactic Acid Level 1.6 0.4-2.0 mmol/L Calcium Level 15.5 *H 8.7-10.4 mg/dL Magnesium Level 2.0 1.6-2.6 mg/dL Total Bilirubin 0.6 0.2-1.0 mg/dL Aspartate Amino Transferase (AST) 16 13-40 U/L Alanine Aminotransferase (ALT) 16 7-40 U/L Alkaline Phosphatase 232 H 46-116 U/L B-Type Natriuretic Peptide 9.92 0-100 pg/mL Total Protein 7.3 5.7-8.2 g/dL Albumin 4.6 3.2-4.8 g/dL Current Medications Medications (Trade) Dose Ordered Sig/Shu Route Start Time Stop Time Status Last Admin Sodium Chloride 500 ml @ 500 mls/hr Q1H ONCE IV 01/03/24 14:30 01/03/24 15:29 DC 01/03/24 14:30 Ondansetron HCl (Zofran) 4 mg ONCE ONCE IV 01/03/24 18:00 01/03/24 18:01 DC 01/03/24 18:09 Acetaminophen/ Hydrocodone Bitart ([place] 5/325MG Tab) 1 tab ONCE ONCE PO 01/03/24 18:00 01/03/24 18:01 DC 01/03/24 18:10 Ceftriaxone Sodium 50 ml @ 100 mls/hr ONCE ONCE IV 01/03/24 18:15 01/03/24 18:44 DC 01/03/24 20:34 Time of 1ST Reevaluation: 22:34 Reevaluation 1ST: Improved Patient Education/Counseling: Diagnosis, Treatment Family Education/Counseling: Diagnosis, Treatment Comments Patient presented with the above HPI.---hypercalcemia---workup was initiated. patient was found with the above mentioned diagnosis. Patient was given: Fluids, Rocephin for UTI, hydrocodone, Zofran Patient ED course and VS have been stabilized. Patient has been reassessed in the ED and remained in a stable condition. Pertinent incidental findings were discussed with the patient and/or family. Patient/family voices understanding and is agreeable with plan. Patient has been observed in the ED adequate length of time to insure improvement/stability. patient was admitted to the medicine team for further evaluation and treatment of their presentation. All the reports of any imaging studies that were ordered by myself were reviewed by myself. Departure 1 Departure Time of Disposition: 18:08 Impression: Primary Impression: Hypercalcemia Additional Impression: Urinary tract infection Disposition: ADMITTED INPATIENT Condition: Guarded Discharged With: Self Critical Care Note Critical Care Time?: No I personally scribed for CELE ALMENDAREZ DO ([email or web address]) on 01/03/24 at 14:32. Electronically submitted by Tomas HINKLE). CELE ALMENDAREZ DO Jan 03, 2024 14:32
[2024-01-03 16:35] LABS: Basophils # (auto) 0.1 10 ^3/uL (0-0.2); Basophils % (auto) 0.5 % (0.0-2.0); Eosinophils # (auto) 0 10 ^3/uL (0-0.8); Eosinophils % (auto) 0.3 % (0.0-7.0); Hematocrit 41.2 % (36.0-46.0); Lymphocytes # (auto) 1.5 10 ^3/uL (0.4-5.4); Lymphocytes % (auto) 15.1 % (10.0-50.0); Mean Corpuscular Hemoglobin 30.5 pg (28.0-32.0); Mean Corpuscular Volume 89.8 fL (80.0-100.0); Monocytes # (auto) 0.8 10 ^3/uL (0-1.3); Monocytes % (auto) 7.4 % (0.0-12.0); Neutrophils # (auto) 7.9 10 ^3/uL (1.6-8.6); Neutrophils % (auto) 76.7 % (37.0-80.0); Platelet Count (auto) 257 10^3/uL (140-450); Red Blood Cells 4.59 10^6/uL (4.0-5.20); Red Cell Distribution Width 13.8 % (11.8-14.3); White Blood Cell 10.2 10^3/uL (4.4-10.8)
[2024-01-03 16:54] LABS: Alanine Aminotransferase 16 U/L (7-40); Albumin 4.6 g/dL (3.2-4.8); Alkaline Phosphatase 232 U/L (46-116); Anion Gap 8 (5-15); Aspartate Aminotransferase 16 U/L (13-40); BUN/Creatinine Ratio 10.4 (10.0-20.0); Bilirubin, Total 0.6 mg/dL (0.2-1.0); Blood Urea Nitrogen 10 mg/dL (9-23); Carbon Dioxide 24 mmol/L (20-31); Chloride 105 mmol/L (98-107); Glucose 189 mg/dL (74-106); Potassium 4.1 mmol/L (3.5-5.1); Sodium 137 mmol/L (136-145)
[2024-01-03 16:55] LABS: Total Protein 7.3 g/dL (5.7-8.2)
[2024-01-03 17:04] LABS: Calcium 15.5 mg/dL (8.7-10.4)
[2024-01-03 17:12] LABS: Urine Bacteria FEW /hpf (None Seen); Urine Blood Negative /uL (Negative); Urine Clarity Turbid (Clear); Urine Color Yellow (Yellow); Urine Mucus FEW (None Seen); Urine Protein, UAD TRACE (Negative); Urine Specific Gravity 1.017 (1.001-1.035); Urine Urobilinogen Normal (Negative); Urine WBC 79 /hpf (0 - 5); Urine pH 5.5 (5.0-9.0)
[2024-01-03] MEDS: ONDANSETRON HCL 4 MG/2 ML VIAL IV ONE ×2 (18:09→22:38)
[2024-01-03] MEDS: HYDROcodone-ACET 5/325MG TAB PO ONE (18:10)
[2024-01-03 20:20] VITALS: PULSE 84; RESP 16; O2SAT 97
[2024-01-03] MEDS: cefTRIAXone 1GM/50ML D5W 50 ML IV ONE (20:34)
[2024-01-03] MEDS ORDERED: MORPHINE SULFATE INJ 2 MG/ml SYRG IV PRN ×2 (20:45)
[2024-01-03] MEDS ORDERED: NITROGLYCERIN 0.4 MG SL TAB SL PRN (20:45)
--- NOTE | 2024-01-03 22:08 | DVHHPRES ---
History of Present Illness Resident Creating Document: LEONARDO FOY RESIDENT History of Present Illness Patient is 63 years old female with past medical history of diabetes mellitus type 2, hypertension, recently admitted for metabolic encephalopathy, posttraumatic stress no mass came to the ER from doctor's office due to abnormal lab, hypercalcemia. Patient's family had a plan to take her to [facility]. As per patient patient went to see her doctor as she was not feeling good and to establish a care and doctor sent her to the ER for further evaluation and care. Patient reported she has been having abdominal and back pain for last 3-4 days, sharp in nature, 11/23, no radiation or aggravating or relieving factor. Patient also endorsed nausea and vomiting for several times, watery content, no blood. Reported having log bowel movement 3 days before. Patient denied any fever, dysuria, acute joint pain or swelling, chest pain or shortness of breath, dysarthria or change in vision. Patient was recently hospitalized at [facility] in December 04, 2023 due to altered mental status and was found to have posterior mediastinal mass, SNEHAL, PTH> 2500. Bronchoscopy and biopsy was done and pending outpatient follow up for biopsy report. Lab workup revealed calcium 15.5, serum creatinine 0.96, GFR 66, alkaline phosphatase 232. Serum phosphorus 2.O Pending lipase report. Other reports are nonsignificant. -gastric biopsy report revealed minimum gastritis, gastric polyp, esophageal nodule -posterior mediastinum biopsy report revealed no malignancy, some inflammatory cells Previous CT chest on 12/01/2023 revealed-Lower neck/upper posterior mediastinal mass likely arising from the esophagus extending over a length of 98mm concerning for esophageal malignancy On 12/02/[address] scan of the neck with contrast revieled - Enlarged right and left lobes of the thyroid. Soft tissue mass posterior to the trachea beginning at the level of C5 and extending to the bottom of the imaging to T4. This soft tissue mass is posterior to the trachea and in the prevertebral space suggesting an esophageal mass. Correlate for clinical symptomatology of difficulty swallowing. This is atypical for a thyroid mass to extend into the posterior mediastinal space are typically in the anterior mediastinal space. At the level of T2 soft tissue mass measures 4.8 cm in transverse dimension and 2.6 cm in AP dimension. It appears to extend to the level of T4. 12/01/23-parathyroid scan revealed-No scintigraphic evidence for parathyroid adenoma in the neck. Past Medical History Hypertension, diabetes, history of metabolic encephalopathy, posterior mediastinal mass Past Surgical History , hysterectomy Family History -father had coronary artery disease Review of Systems Review of Systems Allergy- NKDA Personal History/ Social History- nonsmoker, nonalcoholic no drug abuse Patient was seen today at the bedside. Patient Cardiovascular- deny acute chest pain or shortness of breath or cough or palpitation Respiratory- denies cough or short of breath or wheezing Gastrointestinal- denies any rectal bleeding, nausea or vomiting Musculoskeletal-denies acute joint swelling or tenderness or redness Neurological- denies acute dysarthria, dysphagia, change in vision Psychiatry- denies depression or SI or HI Skin- denies acute rash or purpura Allergies: Coded Allergies: NO KNOWN ALLERGIES (Unverified , 11/26/23) Medications Current Medications Medications Dose Ordered Sig/Shu Route Start Time Stop Time Status Last Admin Dose Admin Sodium Chloride 10 ml Q8HR IV 01/03/24 22:00 Ondansetron HCl 4 mg Q4HP PRN IV 01/03/24 20:45 Morphine Sulfate 2 mg Q4HPRN PRN IV 01/03/24 20:45 Nitroglycerin 0.4 mg Q5MINP PRN SL 01/03/24 20:45 Morphine Sulfate 2 mg Q30M PRN IV 01/03/24 20:45 Exam Vital Signs Vital Signs Date Time Temp Pulse Resp B/P (MAP) Pulse Ox O2 Delivery O2 Flow Rate FiO2 01/03/24 20:20 98.1 84 16 121/65 (83) 96 98.1 01/03/24 20:20 Room Air* 0 21 Exam General examination- HEENT- PEERLA, no acute nasal discharge Cardiovascular- S1-S2 audible, rate and rhythm regular, no murmur Respiratory- CTAB, no wheeze or rhonchi Gastrointestinal-nontender, bowel sound+. Nondistended Musculoskeletal-no acute joint swelling or tenderness or redness# Lower extremity- Neurological- cranial nerves intact, no acute dysarthria or dysphagia Psychiatry- denies depression or SI or HI Skin- no acute rash or purpura Labs/Xrays Labs Test 01/03/24 19:29 01/03/24 16:42 01/03/24 16:12 Range/Units Troponin I High Sensitivity 17 </=34 ng/L Urine Color Yellow Yellow Urine Clarity Turbid H Clear Urine pH 5.5 5.0-9.0 Urine Specific [place] 1.017 1.001-1.035 Urine Protein Trace H Negative Urine Ketones 1+ H Negative Urine Blood Negative Negative /uL Urine Nitrite 2+ H Negative Urine Bilirubin Negative Negative Urine Urobilinogen Normal Negative mg/dL Urine Leukocyte Esterase 2+ Negative /uL Urine RBC <1 0 - 4 /hpf Urine WBC 79 0 - 5 /hpf Urine Squamous Epithelial Cells Few <5 /hpf Urine Calcium Oxalate Crystals Few None Seen Urine Bacteria Few H None Seen /hpf Urine Mucus Few None Seen Urine Glucose Normal Normal mg/dL White Blood Count 10.2 4.4-10.8 10^3/uL Red Blood Count 4.59 4.0-5.20 10^6/uL Hemoglobin 14.0 12.2-16.2 g/dL Hematocrit 41.2 36.0-46.0 % Mean Corpuscular Volume 89.8 80.0-100.0 fL Mean Corpuscular Hemoglobin 30.5 28.0-32.0 pg Mean Corpuscular Hemoglobin Concent 34.0 32.0-36.0 g/dL Red Cell Distribution Width 13.8 11.8-14.3 % Platelet Count 257 140-450 10^3/uL Mean Platelet Volume 8.7 6.9-10.8 fL Neutrophils (%) (Auto) 76.7 37.0-80.0 % Lymphocytes (%) (Auto) 15.1 10.0-50.0 % Monocytes (%) (Auto) 7.4 0.0-12.0 % Eosinophils (%) (Auto) 0.3 0.0-7.0 % Basophils (%) (Auto) 0.5 0.0-2.0 % Neutrophils # (Auto) 7.9 1.6-8.6 10 ^3/uL Lymphocytes # (Auto) 1.5 0.4-5.4 10 ^3/uL Monocytes # (Auto) 0.8 0-1.3 10 ^3/uL Eosinophils # (Auto) 0 0-0.8 10 ^3/uL Basophils # (Auto) 0.1 0-0.2 10 ^3/uL Nucleated Red Blood Cells 0.0 % Sodium Level 137 136-145 mmol/L Potassium Level 4.1 3.5-5.1 mmol/L Chloride Level 105 98-107 mmol/L Carbon Dioxide Level 24 20-31 mmol/L Anion Gap 8 5-15 Blood Urea Nitrogen 10 9-23 mg/dL Creatinine 0.96 0.550-1.02 mg/dL Glomerular Filtration Rate Calc 66 >90 mL/min BUN/Creatinine Ratio 10.4 10.0-20.0 Serum Glucose 189 H 74-106 mg/dL Lactic Acid Level 1.6 0.4-2.0 mmol/L Calcium Level 15.5 *H 8.7-10.4 mg/dL Magnesium Level 2.0 1.6-2.6 mg/dL Total Bilirubin 0.6 0.2-1.0 mg/dL Aspartate Amino Transferase (AST) 16 13-40 U/L Alanine Aminotransferase (ALT) 16 7-40 U/L Alkaline Phosphatase 232 H 46-116 U/L B-Type Natriuretic Peptide 9.92 0-100 pg/mL Total Protein 7.3 5.7-8.2 g/dL Albumin 4.6 3.2-4.8 g/dL Assessment/Plan Assessment/Plan # Acute abdominal pain likely due to hypercalcemia/acute pancreatitis -epigastric tenderness positive -serum calcium 15.5 -serum lipase 32 -continue IV normal saline as prescribed -ordered subcutaneously 300 mg calcitonin once -ordered zoledronic acid zometa iv once -monitor serum calcium level -continue pain medication as prescribed # hypercalcemia, recurrent --serum calcium 15.5 -serum lipase 32 -continue IV normal saline as prescribed -ordered subcutaneously 300 mg calcitonin once -monitor serum calcium level --ordered zoledronic acid zometa iv once -continue pain medication as prescribed # hypophosphatemia -phosphorus level 2.0 -ordered sodium phosphate 20 IV meq once # history of posterior mediastinal mass -status post bronchoscopic biopsy --gastric biopsy report revealed minimum gastritis, gastric polyp, esophageal nodule -posterior mediastinum biopsy report revealed no malignancy, some inflammatory cells # hypertension -hydralazine 10 mg q.6h p.r.n. # diabetes mellitus 2 -on 11/26/2023 HGB A1c 7.1 -continue insulin sliding scale as prescribed # suspected CKD stage 2 -serum creatinine 0.96 -GFR 66 -avoid dehydration and nephrotoxic drugs Goals of care/advance care planning; FULL CODE; discussed with the patient >15 minutes PUD prophylaxis: Pantoprazole DVT prophylaxis: Lovenox PCP-patient came yesterday to [facility] to establish a primary care physician Plan discussed with Dr. Kennedy, nursing staff, patient Total time spent on patient evaluation, chart review, assessment and plan, discussion discussion >30 minutes Plan discussed with: Patient Plan discussed with: Patient, Other (RN) My Orders Orders - LEONARDO FOY Procedure Category Date Status Time Admit ADMIT 01/03/24 Transmitted 20:45 Code Status CODE 01/03/24 Transmitted 20:45 Sodium Chloride Lock PHA 01/03/24 In Process (Saline Lock Ns) 22:00 Ondansetron Hcl PHA 01/03/24 In Process (Zofran) 20:45 Morphine Sulfate PHA 01/03/24 In Process Injection 20:45 Nitroglycerin PHA 01/03/24 In Process Sublingual (Ntrostat 20:45 Morphine Sulfate PHA 01/03/24 In Process Injection 20:45 Oxygen By Nasal RT 01/03/24 Transmitted Cannula 20:45 Stat Ekg For Chest YURIDIA 01/03/24 In Process Pain 20:45 Notify Md Of Changes YURIDIA 01/03/24 In Process From Base 20:45 Test Facility Engineer For YURIDIA 01/03/24 In Process 24 Hours 20:45 Emergency Dysrhythmia YURIDIA 01/03/24 In Process Protocol 20:45 Rhythm Strips Once [facility] 01/03/24 In Process Every Shift 20:45 Sodium Chloride 0.9% PHA 01/03/24 In Process 21:15 Date of Service: Jan 03, 2024 Billing Provider: SIMON KENNEDY MD Common Visit Codes: 51429-QNHYPHP INP/OBS CARE (HIGH) Secondary Visit Codes: 25079-IMYCOEPI CARE PLAN 30 MINUTES LEONARDO FOY Jan 03, 2024 22:08 SIMON KENNEDY MD Jan 04, 2024 09:18
[2024-01-03] MEDS: SODIUM CHLOR 0.9% PF (SALINE LOCK) 10ML VIAL/SYR IV SCH (22:09)
[2024-01-03] MEDS: ACCU-CHEK COMFORT CURVE STRIP VI ONE (22:30)
[2024-01-03] MEDS ORDERED: hydrALAZINE HCL 20 MG/ML VL IV PRN (22:30)
[2024-01-03] MEDS: InsuLIN REG 1unit/0.01ml Soln (100units/ml) SC ONE (22:30)
[2024-01-03] MEDS: CALCITONIN 400unit/2ml Vial (200unit/ml) IM ONE (22:37)
[2024-01-03] MEDS: KETOROLAC TROMETH 30 MG/ML 1ML VIAL IV ONE (22:37)
[2024-01-03] MEDS: DEXTROSE (50%) 50ML SYRG IV ONE (22:39)
[2024-01-04] MEDS: ENOXAPARIN SOD 40 MG/0.4 ML SYRINGE SC ONE (01:37)
[2024-01-04] MEDS: SODIUM PHOSPHATES 20 MEQ in SODIUM CHL 0.9% 100 ML IV ONE (01:37)
[2024-01-04] MEDS: PANTOPRAZOLE 40 MG/10 ML VIAL INJ IV ONE (01:40)
[2024-01-04] MEDS: SODIUM CHLORIDE 0.9% 1,000 ML IV ONE (01:41)
[2024-01-04 06:37] LABS: Basophils # (auto) 0 10 ^3/uL (0-0.2); Basophils % (auto) 0.4 % (0.0-2.0); Eosinophils # (auto) 0 10 ^3/uL (0-0.8); Eosinophils % (auto) 0.3 % (0.0-7.0); Hemoglobin 14.3 g/dL (12.2-16.2); Lymphocytes # (auto) 1.4 10 ^3/uL (0.4-5.4); Lymphocytes % (auto) 13.7 % (10.0-50.0); Mean Corpuscular Hgb Conc. 34.8 g/dL (32.0-36.0); Mean Corpuscular Volume 89.1 fL (80.0-100.0); Monocytes # (auto) 0.7 10 ^3/uL (0-1.3); Monocytes % (auto) 6.7 % (0.0-12.0); Neutrophils # (auto) 8.1 10 ^3/uL (1.6-8.6); Neutrophils % (auto) 78.9 % (37.0-80.0); Platelet Count (auto) 240 10^3/uL (140-450); Red Cell Distribution Width 13.7 % (11.8-14.3); White Blood Cell 10.3 10^3/uL (4.4-10.8)
[2024-01-04 06:48] LABS: Alanine Aminotransferase 16 U/L (7-40); Albumin 4.6 g/dL (3.2-4.8); Alkaline Phosphatase 216 U/L (46-116); Anion Gap 9 (5-15); Aspartate Aminotransferase 14 U/L (13-40); BUN/Creatinine Ratio 10.9 (10.0-20.0); Bilirubin, Total 0.5 mg/dL (0.2-1.0); Blood Urea Nitrogen 13 mg/dL (9-23); Carbon Dioxide 23 mmol/L (20-31); Chloride 103 mmol/L (98-107); Glucose 282 mg/dL (74-106); Magnesium 1.8 mg/dL (1.6-2.6); Potassium 4.4 mmol/L (3.5-5.1); Sodium 135 mmol/L (136-145); Total Protein 7.6 g/dL (5.7-8.2)
[2024-01-04 06:50] LABS: Calcium 14.3 mg/dL (8.7-10.4)
[2024-01-04] MEDS: ENOXAPARIN SOD 40 MG/0.4 ML SYRINGE SC SCH (11:15)
--- NOTE | 2024-01-04 11:18 | DVH ---
Exam: CT CT AB PEL WO CON-NO ORAL OR IV History: pancreatitis Comparison Study: CT scan of the abdomen pelvis dated 11/26/2023. TECHNIQUE: Multidetector CT of the abdomen and pelvis was performed from lung bases to ischial tubero sities. Imaging was performed without IV contrast using axial images. Coronal and sagittal reformats were obtained from the axial data set by the technologist. Radiation Dose Information: CT Dose: CTDI volume is [CTDIvol] mGy. Dose-length product is 1175.26 mGy*cm FINDINGS: Evaluation of solid organs is limited due to lack of intravenous contrast use. Findings: Lung Bases: No acute or significant lung base finding. Normal heart size. No pleural or pericardial effusion. Liver: The liver is normal in size. No focal lesions. Gallbladder and Biliary Tree: Gallstones. No biliary ductal dilatation. Spleen: Unremarkable Pancreas: There is peripancreatic fat stranding. Adrenal Glands: Unremarkable Kidneys: Kidneys are grossly normal without calculi or hydronephrosis. GI Tract: The stomach is grossly normal in appearance. The small bowel is normal in caliber. There is colonic diverticulosis. There is mild fat stranding surrounding the proximal sigmoid colon. The col on is collapsed in this location and wall thickening is difficult to exclude. Normal appendix is visu alized in the right lower quadrant without findings of appendicitis. Peritoneal cavity: No pneumoperitoneum. No ascites. No fluid collection. Lymphadenopathy: No mesenteric, retroperitoneal or periportal lymphadenopathy. Abdominal Wall and Mesentery: Unremarkable. Vasculature: The visualized abdominal aorta is normal in size and caliber. Evaluation of abdominal a nd pelvic vessels is limited due to lack of intravenous contrast. Pelvic Organs: 4.0 cm left adnexal cystic esion noted. Uterus is unremarkable. Urinary Bladder: Grossly unremarkable for degree of distention. Musculoskeletal: No aggressive focal bony lesions, acute fractures or dislocation. Multilevel lumbar spondylosis. Soft tissues: Unremarkable IMPRESSION: 1. Peripancreatic fat stranding highly suspicious for acute interstitial pancreatitis. Findings simil ar to prior CT. No fluid collection. 2. Colonic diverticulosis with fat stranding surrounding the proximal sigmoid colon. The colon is co llapse in this location and wall thickening is therefore difficult to exclude. Acute diverticulitis can not be excluded. 3. Left adnexal cystic lesion measuring 4.0 cm. Radiation optimization: All CT scans at this facility use at least one of these dose optimization sharon hniques: automated exposure control mA and/or kV adjustment per patient size (includes targeted exam s where dose is matched to clinical indication) or iterative reconstruction.
[2024-01-04 13:48] LABS: Amphetamine Screen, Urine Neg (NEGATIVE); Barbiturate Scree,Urine Neg (NEGATIVE); Benzodiazephine Screen, Urine Neg (NEGATIVE); Cannabinoid Screen, Urine Neg (NEGATIVE); Cocaine Screen, Urine Neg (NEGATIVE); Opiate Scree,Urine Neg (NEGATIVE); Phencyclidine Screen, Urine Neg (NEGATIVE)
[2024-01-04] MEDS: PANTOPRAZOLE 40 MG/10 ML VIAL INJ IV SCH (15:00)
[2024-01-04] MEDS: ONDANSETRON HCL 4 MG/2 ML VIAL IV PRN (15:00)
[2024-01-04] MEDS: SODIUM CHLORIDE 0.9% 1,000 ML IV SCH (15:00)
[2024-01-04] MEDS: ZOLEDRONIC ACID 4 MG in SODIUM CHL 0.9% 100 ML IV ONE (15:09)
--- NOTE | 2024-01-04 15:09 | DVHPNRES ---
Progress Note Date Seen: Jan 04, 2024 Resident Creating Document: CLARISSA SAAB RESIDENT Has the PT tested + for MRSA If YES, has PT been informed?: No Medical Necessity Reason Pt with a Central, PICC or Fol: No Subjective Review of Systems This is a 63 years old female with past medical history of diabetes mellitus type 2 and hypertension. Patient was admitted in November, for metabolic encephalopathy due to, hypercalcemia (19.1) with elevated PTH over 1999. CT chest revealed mediastinal mass extending into the neck. Parathyroid scan revealed no scintigraphic evidence for parathyroid adenoma in the neck. GI team performed EGD with biopsy and wastewater process engineer also performed bronchoscopy with biopsy. Both pathology reports were negative for malignancies. Consultation by the Cardiothoracic surgeon recommended patient get fine-needle aspiration (FNA) at a higher level center. Hypercalcemia was managed with fluids and bisphosphonates and patient was finally discharged when her calcium was stable around 12.3. Since discharge, patient had not follow up with any providers but reported to the discharge clinic on 01/03/2024 with severe nausea, vomiting, and generalized abdominal pain. Patient had a stat serum calcium which showed Ca: 15.5. Patient was transferred to the ED for further evaluation and management. Further lab workup revealed serum creatinine 0.96, GFR 66, alkaline phosphatase 232, serum phosphorus 2.0, lipase of 32. The abdomen revealed peripancreatic fat stranding highly suspicious for acute interstitial pancreatitis. Findings similar to prior CT. No fluid collection. 2. Colonic diverticulosis with fat stranding surrounding the proximal sigmoid colon. The colon is collapse in this location and wall thickening is therefore difficult to exclude. Acute diverticulitis can not be excluded. Past Medical History: Hypertension, diabetes, history of metabolic encephalopathy, posterior mediastinal mass Past Surgical History:, hysterectomy Family History-father had coronary artery disease Constitutional: Denies fever no chill, but malaise, some weight loss HEENT: Denies headache, ear pain, ear discharges, conjunctivitis, nasal discharge throat pain Cardiovascular: Denies chest pain, palpitation, orthopnea, PND, or pedal edema Respiratory: Denies shortness of breath, cough cough, sputum production, hemoptysis, GI: General abdominal pain, nausea, vomiting, diarrhea, but no hematemesis or hematochezia, : Denies frequency, urgency, hematuria, Endocrine: Denies unintentional weight gai; endorsed some weight loss, Brian: Denies easy bruising, bleeding disorders, epistaxis Musculoskeletal: Denies joint pains, muscle aches Psych: No evidence of depression, arabella, suicidal ideation Skin- denies acute rash or purpura Allergies: NO KNOWN ALLERGIES Objective vital signs Vital Sign Date Time Temp Pulse Resp B/P (MAP) Pulse Ox O2 Delivery O2 Flow Rate FiO2 01/03/24 20:20 98.1 84 16 121/65 (83) 96 98.1 01/03/24 20:20 Room Air* 0 21 medications Current Medications Medications Dose Ordered Sig/Shu Route Start Time Stop Time Status Last Admin Dose Admin Sodium Chloride 10 ml Q8HR IV 01/03/24 22:00 01/04/24 14:09 10 ML Ondansetron HCl 4 mg Q4HP PRN IV 01/03/24 20:45 Morphine Sulfate 2 mg Q4HPRN PRN IV 01/03/24 20:45 Nitroglycerin 0.4 mg Q5MINP PRN SL 01/03/24 20:45 Morphine Sulfate 2 mg Q30M PRN IV 01/03/24 20:45 Hydralazine HCl 10 mg Q6HP PRN IV 01/03/24 22:30 Enoxaparin Sodium 40 mg DAILY SC 01/04/24 10:00 01/04/24 11:15 40 MG Pantoprazole Sodium 20 mg DAILY IV 01/04/24 10:00 Ceftriaxone Sodium 50 ml @ 100 mls/hr DAILY@09 IV 01/05/24 09:00 Sodium Chloride 1,000 ml @ 125 mls/hr Q8H IV 01/04/24 14:15 Examination General examination- In moderate to severe acute distress HEENT: PEERLA, no acute nasal discharge Chest: S1-S2 audible, rate and rhythm regular, no murmur Lung: CTAB, no wheeze or rhonchi Abdomen: Nondistend, BS+, geenralized tenderness, no organomegaly Musculoskeletal: no acute joint swelling or tenderness Lower extremity: no leg edema Neurological: cranial nerves intact, no acute dysarthria or dysphagia Psychiatry-- Normal mood and affect Skin- no acute rash or purpura laboratory and microbiology Laboratory Tests 01/04/24 05:55 Test 01/04/24 05:55 Range/Units Serum Glucose 282 H 74-106 mg/dL Problem List/Assessment/Plan Problem List/Assessment/Plan Hypercalcemia , 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 --> zoledronic acid --> adequate hydration with normal saline --> hypophosphatemia s/p sodium phosphate --> Nephrology consult Nausea and vomiting --> Zofran SNEHAL likely secondary -->adequate hydration with normal saline --> Nephrology consult UTI --> ceftriaxone Possible diverticulitis -->Keep NPO --> Ceftriaxone --> Flagyl Possible acute pancreatitis --> Kerri fluid hydration --> keep NPO Posterior mediastinal mass --> negative biopsy findings so far on EGD and bronchoscopy --> possible higher level of care with biopsy by IR Code status: Full code Discussed for more than 25 minutes Case and plan discussed with Dr. Gallo Plan discussed with: Patient, Daughter My Orders My Orders Orders - CLARISSA SAAB Procedure Category Date Status Time *Dr. Luis A Madrigal CONS 01/04/24 Transmitted -[place] 11:09 Date of Service: Jan 04, 2024 Billing Provider: RUPERTO RODRIGUEZ MD Common Visit Codes: [id number] INP/OBS CARE(H[facility]) CLARISSA SAAB Jan 04, 2024 15:09 RUPERTO RODRIGUEZ MD Jan 04, 2024 22:41
[2024-01-04 16:13] LABS: INR 1.09 (0.9-1.15); Partial Thromboplastin Time 24.5 SEC (24.5-34.5); Prothrombin Time 11.5 sec (9.3-11.8)
[2024-01-04] MEDS: metroNIDAZOLE 500MG/100ML 100 ML IV ONE (17:12)
[2024-01-04] MEDS: cefTRIAXone 1GM/50ML D5W 50 ML IV ONE (17:13)
[2024-01-04 21:20] VITALS: BP 126/68; PULSE 105; RESP 20; TEMP 97.9; O2SAT 98
[2024-01-04 21:34] VITALS: BP 126/68; PULSE 102; PULSE 105; RESP 18; RESP 20; TEMP 97.9; O2SAT 98
[2024-01-04] MEDS: metroNIDAZOLE 500MG/100ML 100 ML IV SCH (22:01)
[2024-01-05] VITALS (8 sets, daily range): BP systolic 116–147; BP diastolic 51–79; PULSE 88–103; RESP 16–20; TEMP 97.5–98.2; O2SAT 90–97
[2024-01-05 06:57] LABS: Alanine Aminotransferase 11 U/L (7-40); Albumin 3.6 g/dL (3.2-4.8); Alkaline Phosphatase 167 U/L (46-116); Anion Gap 6 (5-15); Aspartate Aminotransferase 14 U/L (13-40); BUN/Creatinine Ratio 16.3 (10.0-20.0); Bilirubin, Total 0.3 mg/dL (0.2-1.0); Blood Urea Nitrogen 17 mg/dL (9-23); Calcium 12.6 mg/dL (8.7-10.4); Carbon Dioxide 23 mmol/L (20-31); Chloride 110 mmol/L (98-107); Glucose 234 mg/dL (74-106); Potassium 3.8 mmol/L (3.5-5.1); Sodium 139 mmol/L (136-145)
[2024-01-05 08:36] LABS: Hepatitis B Surface Antigen Negative (Negative)
[2024-01-05 08:57] LABS: Hepatitis C Antibody Negative (Negative)
[2024-01-05] MEDS: cefTRIAXone 1GM/50ML D5W 50 ML IV SCH (09:28)
--- NOTE | 2024-01-05 10:02 | DVHPNRES ---
Progress Note Date Seen: Jan 05, 2024 Resident Creating Document: CLARISSA SAAB RESIDENT Has the PT tested + for MRSA If YES, has PT been informed?: No Medical Necessity Reason Pt with a Central, PICC or Fol: No Subjective Review of Systems Patient was seen and examine. She was lying in bed with mild abdominal pains. Lab values today showed: Ca:12.6, m.8 Constitutional: Denies fever no chill, but malaise, some weight loss HEENT: Denies headache, ear pain, ear discharges, conjunctivitis, nasal discharge throat pain Cardiovascular: Denies chest pain, palpitation, orthopnea, PND, or pedal edema Respiratory: Denies shortness of breath, cough cough, sputum production, hemoptysis, GI: General abdominal pain, improved nausea, vomiting, diarrhea; but no hematemesis or hematochezia, : Denies frequency, urgency, hematuria, Endocrine: Denies unintentional weight gai; endorsed some weight loss, Brian: Denies easy bruising, bleeding disorders, epistaxis Musculoskeletal: Denies joint pains, muscle aches Psych: No evidence of depression, arabella, suicidal ideation Skin- denies acute rash or purpura Objective vital signs Vital Sign Date Time Temp Pulse Resp B/P (MAP) Pulse Ox O2 Delivery O2 Flow Rate FiO2 01/05/24 09:00 98.0 92 16 127/70 (89) 96 98.0 01/04/24 21:34 Room Air* 0 21 Total Intake and Output 01/04/24 01/04/24 01/05/24 15:00 23:00 07:00 Intake Total 250 ml 200 ml Output Total 300 ml Balance 250 ml -100 ml medications Current Medications Medications Dose Ordered Sig/Shu Route Start Time Stop Time Status Last Admin Dose Admin Sodium Chloride 10 ml Q8HR IV 01/03/24 22:00 01/05/24 05:40 10 ML Ondansetron HCl 4 mg Q4HP PRN IV 01/03/24 20:45 01/04/24 15:00 4 MG Morphine Sulfate 2 mg Q4HPRN PRN IV 01/03/24 20:45 Nitroglycerin 0.4 mg Q5MINP PRN SL 01/03/24 20:45 Morphine Sulfate 2 mg Q30M PRN IV 01/03/24 20:45 Hydralazine HCl 10 mg Q6HP PRN IV 01/03/24 22:30 Enoxaparin Sodium 40 mg DAILY SC 01/04/24 10:00 01/05/24 09:29 40 MG Pantoprazole Sodium 20 mg DAILY IV 01/04/24 10:00 01/05/24 09:28 20 MG Ceftriaxone Sodium 50 ml @ 100 mls/hr DAILY@09 IV 01/05/24 09:00 01/05/24 09:28 100 MLS/HR Sodium Chloride 1,000 ml @ 125 mls/hr Q8H IV 01/04/24 14:15 01/04/24 21:55 125 MLS/HR Metronidazole 100 ml @ 100 mls/hr Q8HR IV 01/04/24 22:00 01/05/24 05:40 100 MLS/HR Examination General examination- In mild acute distress HEENT: PEERLA, no acute nasal discharge Chest: S1-S2 audible, rate and rhythm regular, no murmur Lung: CTAB, no wheeze or rhonchi Abdomen: Nondistended, BS+, generalized tenderness, no organomegaly Musculoskeletal: no acute joint swelling or tenderness Lower extremity: no leg edema Neurological: cranial nerves intact, no acute dysarthria or dysphagia Psychiatry-- Normal mood and affect Skin- no acute rash or purpura laboratory and microbiology Laboratory Tests 01/05/24 05:40 01/04/24 05:55 Test 01/05/24 05:40 Range/Units Serum Glucose 234 H 74-106 mg/dL Problem List/Assessment/Plan Problem List/Assessment/Plan Hypercalcemia, 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 --> today at Ca: 12.6 --> zoledronic acid received --> adequate hydration with normal saline --> hypophosphatemia s/p sodium phosphate --> Nephrology consult on board --> Will reassess fluid status in the morning and adjust according Nausea and vomiting --> Zofran SNEHAL likely secondary -->adequate hydration with normal saline --> Nephrology consult UTI --> ceftriaxone Possible diverticulitis -->clear fluid diet for now --> Ceftriaxone --> Flagyl Possible acute pancreatitis --> Kerri fluid hydration --> keep NPO Posterior mediastinal mass --> negative biopsy findings so far on EGD and bronchoscopy --> possible higher level of care with biopsy by IR Code status: Full code Discussed for more than 30 minutes Case and plan discussed with Dr. Gallo Plan discussed with: Patient, Daughter My Orders My Orders Orders - CLARISSA SAAB Procedure Category Date Status Time *Dr. [facility] Group CONS 01/04/24 Transmitted -[facility] 11:09 Date of Service: Jan 05, 2024 Billing Provider: RUPERTO RODRIGUEZ MD Common Visit Codes: [id number] INP/OBS CARE([facility]) CLARISSA SAAB Jan 05, 2024 10:02 RUPERTO RODRIGUEZ MD Jan 06, 2024 09:11
[2024-01-05] MEDS ORDERED: DEXTROSE (50%) 50ML SYRG IV PRN (11:00)
--- NOTE | 2024-01-05 11:12 | DVH ---
EXAM: XY CHEST XRAY 1 VIEW Indication: PVC, pain Technique: Single frontal view of the chest was obtained Comparison: XY CHEST XRAY 1 VIEW on DOS: 12/13/23, XY CHEST PORTABLE on DOS: 12/13/23, XY CHEST XRAY 1 VIEW on DOS: 11/26/23 FINDINGS: Lines and Tubes: None Lungs: No focal consolidation. Pleura: No effusion. No pneumothorax. Cardiomediastinal contours: Unremarkable Bones: No acute osseous abnormality. IMPRESSION: No acute cardiopulmonary disease.
[2024-01-05] MEDS: ACCU-CHEK COMFORT CURVE STRIP VI SCH (11:30)
[2024-01-05] MEDS: MAGNESIUM SULFATE 1GM/100ML 100 ML IV ONE (12:22)
[2024-01-05] MEDS: InsuLIN REG 1unit/0.01ml Soln (100units/ml) SC SCH (12:35)
--- NOTE | 2024-01-05 18:27 | DVHCONRES ---
Date Seen: Jan 05, 2024 Resident Creating Document: ROCCO DENTON RESIDENT Referring Physician Madiha CHAPA Reason for Consultation hypercalcemia History of Present Illness Patient is 63 year female with past medical history of diabetes mellitus type 2, hypertension, PTSD who was brought to the hospital again from office to the hospital for abnormal value hypercalcemia. During that time patient was started having complaining of abdominal pain, back pain associated with constipation for last 2-3 days as well. Abdominal pain was sharp in nature, 10/10, generalized associated with nausea and vomiting. During previous hospitalization patient was found to have mediastinal mass, underwent biopsy, biopsy did not show any malignancy. However given clinical picture mediastinal malignancy can not be ruled out this time as well. Patient also underwent thyroid scan last time which did not show parathyroid adenoma. During the course of this hospitalization, patient found to have high calcium level at 15.5. PTH level high at greater than 2000 on 12/05/2023, low vitamin-D, higher serum osmolality at 327 and HGB A1c at 7.1. Patient was continued with IV fluid and for hypercalcemia patient was given one dose of calcitonin 300 IU on 01/03/2024 and 4 mg IV zoledronic acid on 12/04/2023. Patient's calcium is trending down from 15.5 to 12.6. Apart from generalized weakness and mild abdominal pain, patient denied any symptoms at this point. No other new complaints at this point. Past Medical History Diabetes mellitus type 2, hypertension, PTSD, mediastinal mass Past Surgical History Mediastinal mass biopsy Underwent EGD and bronchoscopy. Family History: Asthma 19 CHILD, Onset:Unknown 19 CHILD, Onset:Unknown G8 SISTER Diabetes mellitus 19 CHILD, Onset:Unknown FH: anemia 19 CHILD, Onset:Unknown Hypertension 19 CHILD, Onset:Unknown Allergies: Coded Allergies: NO KNOWN ALLERGIES (Unverified , 11/26/23) Home Meds No Active Prescriptions or Reported Meds Current Medications Current Medications Medications (Trade) Dose Ordered Sig/Shu Route PRN Reason Start Time Stop Time Status Last Admin Ceftriaxone Sodium 50 ml @ 100 mls/hr DAILY@09 IV 01/05/24 09:00 01/05/24 09:28 Metronidazole 100 ml @ 100 mls/hr Q8HR IV 01/04/24 22:00 01/05/24 17:37 Diagnostic Test (Pha) (Accu-Chek Comfort Curve T) 1 strip ACHS 01/05/24 11:30 01/05/24 17:00 Insulin Human Regular (InsuLIN R) ACHS SC 01/05/24 11:30 01/05/24 17:42 Dextrose 50 ml UD PRN IV Blood Sugar LESS THAN 60 01/05/24 11:00 Review of Systems Eyes: No Pain, No Vision change, No Conjunctivae inflammation, No Eyelid inflammation, No Other, No Redness ENT: No Ear pain, No Ear discharge, No Nose pain, No Nose discharge, No Nose congestion, No Mouth pain, No Mouth swelling, No Throat pain, No Throat swelling, No Other Cardiovascular: No Chest Pain, No Palpitations, No Orthopnea, No Paroxysmal Noc. Dyspnea, No Edema, No Lt Headedness, No Other Respiratory: No Cough, No Dry, No Shortness of breath, No SOB with excertion, No Wheezing, No Hemoptysis, No Pleuritic Pain, No Sputum, No Other Gastrointestinal: No Nausea, No Vomiting, Abdominal Pain, No Diarrhea, No Constipation, No Melena, No Hematochezia, No Other Genitourinary: No Dysuria, No Frequency, No Incontinence, No Hematuria, No Retention, No Other Musculoskeletal: No other, No neck pain, No shoulder pain, No arm pain, No back pain, No hand pain, No leg pain, No foot pain Skin: No Rash, No Lesions, No Jaundice, No Bruising, No Other Vital Signs Vital Signs Date Time Temp Pulse Resp B/P (MAP) Pulse Ox O2 Delivery O2 Flow Rate FiO2 01/05/24 16:48 98.0 88 20 147/67 (93) 96 98.0 01/05/24 08:00 Room Air* 0 21 Physical Exam General Appearance: Cooperative. Well developed. Well nourished. NAD Head Exam: Normal inspection Neck Exam: Normal inspection. Non-tender. Normal alignment Pulmonary/Respiratory: Chest non-tender. Clear bilateral breath sounds Cardiovascular/Chest: Regular rate and rhythm. No murmurs. No JVD. Peripheral Pulses: 2+ Radial (R). 2+ Radial (L). 2+ Pedal (R). 2+ Pedal (L) Abdominal Exam: Normal bowel sounds. Soft. Mild epigastric tenderness on palpation, no rigidity, no involuntary guarding, No hepatospenomegaly. No masses Ankle Exam: Negative ankle edema Lower extremities: Negative lower extremity edema Neuro/Mental Status: A&O x4. Coherent Thoughts/Psych: Normal thought pattern. Appropriate mood and affect. Good judgement and insight Appearance: In no acute distress Skin Exam: Normal inspection. Normal color. Warm. Dry Labs/Diagnostic Data Labs Test 01/05/24 17:19 01/05/24 09:24 01/05/24 05:40 01/04/24 14:40 Range/Units POC Glucose 177 H 70-106 mg/dl Phosphorus Level 2.8 2.4-5.1 mg/dL Sodium Level 139 136-145 mmol/L Potassium Level 3.8 3.5-5.1 mmol/L Chloride Level 110 H 98-107 mmol/L Carbon Dioxide Level 23 20-31 mmol/L Anion Gap 6 5-15 Blood Urea Nitrogen 17 9-23 mg/dL Creatinine 1.04 H 0.550-1.02 mg/dL Glomerular Filtration Rate Calc 60 >90 mL/min BUN/Creatinine Ratio 16.3 10.0-20.0 Serum Glucose 234 H 74-106 mg/dL Calcium Level 12.6 H 8.7-10.4 mg/dL Total Bilirubin 0.3 0.2-1.0 mg/dL Aspartate Amino Transferase (AST) 14 13-40 U/L Alanine Aminotransferase (ALT) 11 7-40 U/L Alkaline Phosphatase 167 H 46-116 U/L Total Protein 6.0 5.7-8.2 g/dL Albumin 3.6 3.2-4.8 g/dL Hepatitis B Surface Antigen Negative Negative Hepatitis C Antibody Negative Negative Prothrombin Time 11.5 9.3-11.8 sec Prothrombin Time INR 1.09 0.9-1.15 Activated Partial Thromboplast Time 24.5 24.5-34.5 SEC Test 01/04/24 05:55 01/03/24 19:29 01/03/24 16:52 01/03/24 16:42 Range/Units White Blood Count 10.3 4.4-10.8 10^3/uL Red Blood Count 4.60 4.0-5.20 10^6/uL Hemoglobin 14.3 12.2-16.2 g/dL Hematocrit 41.0 36.0-46.0 % Mean Corpuscular Volume 89.1 80.0-100.0 fL Mean Corpuscular Hemoglobin 31.0 28.0-32.0 pg Mean Corpuscular Hemoglobin Concent 34.8 32.0-36.0 g/dL Red Cell Distribution Width 13.7 11.8-14.3 % Platelet Count 240 140-450 10^3/uL Mean Platelet Volume 9.3 6.9-10.8 fL Neutrophils (%) (Auto) 78.9 37.0-80.0 % Lymphocytes (%) (Auto) 13.7 10.0-50.0 % Monocytes (%) (Auto) 6.7 0.0-12.0 % Eosinophils (%) (Auto) 0.3 0.0-7.0 % Basophils (%) (Auto) 0.4 0.0-2.0 % Neutrophils # (Auto) 8.1 1.6-8.6 10 ^3/uL Lymphocytes # (Auto) 1.4 0.4-5.4 10 ^3/uL Monocytes # (Auto) 0.7 0-1.3 10 ^3/uL Eosinophils # (Auto) 0 0-0.8 10 ^3/uL Basophils # (Auto) 0 0-0.2 10 ^3/uL Nucleated Red Blood Cells 0.0 % Magnesium Level 1.8 1.6-2.6 mg/dL Troponin I High Sensitivity 17 </=34 ng/L Lipase 32 12-53 U/L Urine Opiates Screen Neg NEGATIVE Urine Fentanyl Screen Neg NEGATIVE Urine Barbiturates Screen Neg NEGATIVE Urine Phencyclidine Screen Neg NEGATIVE Urine Amphetamines Screen Neg NEGATIVE Urine Benzodiazepines Screen Neg NEGATIVE Urine Cocaine Screen Neg NEGATIVE Urine Cannabinoids Screen Neg NEGATIVE Urine Color Yellow Yellow Urine Clarity Turbid H Clear Urine pH 5.5 5.0-9.0 Urine Specific [place] 1.017 1.001-1.035 Urine Protein Trace H Negative Urine Ketones 1+ H Negative Urine Blood Negative Negative /uL Urine Nitrite 2+ H Negative Urine Bilirubin Negative Negative Urine Urobilinogen Normal Negative mg/dL Urine Leukocyte Esterase 2+ Negative /uL Urine RBC <1 0 - 4 /hpf Urine WBC 79 0 - 5 /hpf Urine Squamous Epithelial Cells Few <5 /hpf Urine Calcium Oxalate Crystals Few None Seen Urine Bacteria Few H None Seen /hpf Urine Mucus Few None Seen Urine Glucose Normal Normal mg/dL Test 01/03/24 16:12 Range/Units Lactic Acid Level 1.6 0.4-2.0 mmol/L B-Type Natriuretic Peptide 9.92 0-100 pg/mL Microbiology Date/Time Source Procedure Growth Status 01/03/24 16:41 Voided Urine Urine Culture - Preliminary Resulted Assessment Severe Hypercalcemia ? Due to Paraneoplastic syndrome vs parathyroid cancer versus other endocrine etiology (pth >2000) Rule out parathyroid carcinoma Acute pancreatitis Mild right hydronephrosis UTI Questionable diverticulitis Diabetes mellitus type 2 Plan/recommendation Dr. Jin -Continue IV fluid for hypercalcemia, calcium level trending down, given calcitonin and zoledronic acid . -Recommend endocrine evaluation for possible micro parathyroid adenoma/carcinoma given elevated parathyroid hormone level -Given high rate suspicious for paraneoplastic syndrome, irrespective of biopsy results came negative, recommend Hematology-Oncology evaluation -Urinalysis positive for nitrites acid, leukocyte esterase, WBC, few bacteria. -Antibiotic as per hospitalist team -Monitor kidney function given high calcium level.Follow with calcium level in a.m. again. -Repeat PTH, vitamin D2/D3, magnesium and phosphorus. Total time spent greater than 79 minutes, major every time spent interacting [id number] with patient and family. All question answered. Thank you for consultation. Addendum Patient seen and examined, plan discussed with resident. Agree with above, we will follow closely Plan discussed with: Patient, Other (RN) ROCCO DENTON Jan 05, 2024 18:27 DEBBI JIN MD Jan 05, 2024 19:35
[2024-01-05 20:22] LABS: Magnesium 1.9 mg/dL (1.6-2.6)
[2024-01-05 20:23] LABS: Phosphorus 1.1 mg/dL (2.4-5.1)
[2024-01-06] VITALS (8 sets, daily range): BP systolic 95–117; BP diastolic 46–58; PULSE 83–106; RESP 13–20; TEMP 97.5–98.6; O2SAT 94–98
[2024-01-06 06:45] LABS: Albumin 3.3 g/dL (3.2-4.8); Alkaline Phosphatase 141 U/L (46-116); Anion Gap 7 (5-15); Aspartate Aminotransferase 15 U/L (13-40); BUN/Creatinine Ratio 10.7 (10.0-20.0); Blood Urea Nitrogen 9 mg/dL (9-23); Carbon Dioxide 22 mmol/L (20-31); Chloride 112 mmol/L (98-107); Glucose 139 mg/dL (74-106); Potassium 3.2 mmol/L (3.5-5.1); Sodium 141 mmol/L (136-145)
[2024-01-06 06:46] LABS: Alanine Aminotransferase < 9 U/L (7-40); Bilirubin, Total 0.3 mg/dL (0.2-1.0); Total Protein 5.6 g/dL (5.7-8.2)
[2024-01-06] MEDS: POTASSIUM EFFERVESENT TAB 25 MEQ PO ONE (09:13)
[2024-01-06] MEDS: HYDROcodone-ACET 5/325MG TAB PO PRN (12:30)
--- NOTE | 2024-01-06 13:35 | DVHPN2 ---
Progress Note Date Seen: Jan 06, 2024 Resident Creating Document: ROCCO DENTON RESIDENT Has the PT tested + for MRSA If YES, has PT been informed?: No Medical Necessity Reason Pt with a Central, PICC or Fol: No Subjective Review of Systems History of Present Illness Patient is 63 year female with past medical history of diabetes mellitus type 2, hypertension, PTSD who was brought to the hospital again from office to the hospital for abnormal value hypercalcemia. During that time patient was started having complaining of abdominal pain, back pain associated with constipation for last 2-3 days as well. Abdominal pain was sharp in nature, 11/23, generalized associated with nausea and vomiting. During previous hospitalization patient was found to have mediastinal mass, underwent biopsy, biopsy did not show any malignancy. However given clinical picture mediastinal malignancy can not be ruled out this time as well. Patient also underwent thyroid scan last time which did not show parathyroid adenoma. During the course of this hospitalization, patient found to have high calcium level at 15.5. PTH level high at greater than 2000 on 12/05/2023, low vitamin-D, higher serum osmolality at 327 and HGB A1c at 7.1. Patient was continued with IV fluid and for hypercalcemia patient was given one dose of calcitonin 300 IU on 01/03/2024 and 4 mg IV zoledronic acid on 12/04/2023. Patient's calcium is trending down from 15.5 to 12.6. Apart from generalized weakness and mild abdominal pain, patient denied any symptoms at this point. No other new complaints at this point. Past Medical History Diabetes mellitus type 2, hypertension, PTSD, mediastinal mass Past Surgical History Mediastinal mass biopsy Underwent EGD and bronchoscopy patient seen and examined at bedside. No new complains. Objective vital signs Vital Sign Date Time Temp Pulse Resp B/P (MAP) Pulse Ox O2 Delivery O2 Flow Rate FiO2 01/06/24 11:14 17 97 Room Air* 0 21 01/06/24 09:00 97.7 106 117/52 (73) 97.7 Total Intake and Output 01/05/24 01/05/24 01/06/24 15:00 23:00 07:00 Intake Total 100 ml 750 ml 1100 ml Output Total 400 ml 1000 ml Balance 100 ml 350 ml 100 ml medications Current Medications Medications Dose Ordered Sig/Shu Route Start Time Stop Time Status Last Admin Dose Admin Sodium Chloride 10 ml Q8HR IV 01/03/24 22:00 01/06/24 13:07 10 ML Ondansetron HCl 4 mg Q4HP PRN IV 01/03/24 20:45 01/04/24 15:00 4 MG Morphine Sulfate 2 mg Q4HPRN PRN IV 01/03/24 20:45 Nitroglycerin 0.4 mg Q5MINP PRN SL 01/03/24 20:45 Morphine Sulfate 2 mg Q30M PRN IV 01/03/24 20:45 Hydralazine HCl 10 mg Q6HP PRN IV 01/03/24 22:30 Enoxaparin Sodium 40 mg DAILY SC 01/04/24 10:00 01/06/24 08:53 40 MG Pantoprazole Sodium 20 mg DAILY IV 01/04/24 10:00 01/06/24 08:53 20 MG Ceftriaxone Sodium 50 ml @ 100 mls/hr DAILY@09 IV 01/05/24 09:00 01/06/24 08:53 100 MLS/HR Metronidazole 100 ml @ 100 mls/hr Q8HR IV 01/04/24 22:00 01/06/24 13:21 100 MLS/HR Diagnostic Test (Pha) 1 strip ACHS 01/05/24 11:30 01/06/24 11:30 1 STRIP Insulin Human Regular ACHS SC 01/05/24 11:30 01/06/24 12:35 3 UNITS Dextrose 50 ml UD PRN IV 01/05/24 11:00 Acetaminophen/ Hydrocodone Bitart 1 tab Q6HPRN PRN PO 01/06/24 12:00 01/06/24 12:30 1 TAB Examination General Appearance: Cooperative. Well developed. Well nourished. NAD Head Exam: Normal inspection Neck Exam: Normal inspection. Non-tender. Normal alignment Pulmonary/Respiratory: Chest non-tender. Clear bilateral breath sounds Cardiovascular/Chest: Regular rate and rhythm. No murmurs. No JVD. Peripheral Pulses: 2+ Radial (R). 2+ Radial (L). 2+ Pedal (R). 2+ Pedal (L) Abdominal Exam: Normal bowel sounds. Soft. Mild epigastric tenderness on palpation, no rigidity, no involuntary guarding, No hepatospenomegaly. No masses Ankle Exam: Negative ankle edema Lower extremities: Negative lower extremity edema Neuro/Mental Status: A&O x4. Coherent Thoughts/Psych: Normal thought pattern. Appropriate mood and affect. Good judgement and insight Appearance: In no acute distress Skin Exam: Normal inspection. Normal color. Warm. Dry laboratory and microbiology Laboratory Tests 01/06/24 05:55 01/04/24 05:55 Test 01/06/24 05:55 Range/Units Serum Glucose 139 H 74-106 mg/dL Microbiology Date/Time Source Procedure Growth Status 01/03/24 16:41 Voided Urine Urine Culture - Preliminary Resulted Problem List/Assessment/Plan Problem List/Assessment/Plan Severe Hypercalcemia ? Due to Paraneoplastic syndrome vs parathyroid cancer versus other endocrine etiology (pth >2000) Rule out parathyroid carcinoma Acute pancreatitis Mild right hydronephrosis UTI Questionable diverticulitis Diabetes mellitus type 2 Plan/recommendation Dr. Gunn -Continue IV fluid for hypercalcemia, calcium level trending down, given calcitonin and zoledronic acid . -Recommend endocrine evaluation for possible micro parathyroid adenoma/carcinoma given elevated parathyroid hormone level -Given high rate suspicious for paraneoplastic syndrome, irrespective of biopsy results came negative, recommend Hematology-Oncology evaluation -Urinalysis positive for nitrites acid, leukocyte esterase, WBC, few bacteria. -Antibiotic as per hospitalist team -Monitor kidney function given high calcium level.Follow with calcium level in a.m. again. -Repeat PTH, vitamin D2/D3, magnesium and phosphorus. We will sign off this time. Please reconsult if needed. Plan discussed with: Patient, Other (RN) My Orders My Orders Orders - ROCCO DENTON Procedure Category Date Status Time Vitamin D 25-Hydroxy LAB 01/05/24 In Process D2 + D3 18:10 Hydrocodone-Acet PHA 01/06/24 In Process 5/325mg Tab (Souris 12:00 ROCCO DENTON RESIDENT Jan 06, 2024 13:35
[2024-01-06] MEDS ORDERED: METR-344 PO (15:51)
[2024-01-06] MEDS ORDERED: CEPH250C PO (15:51)
--- NOTE | 2024-01-06 19:59 | DVHDSRES ---
Discharge Summary Date of Admission Resident Creating Document: ROCCO DENOTN RESIDENT Jan 03, 2024 at 20:45 Date of Discharge: Jan 06, 2024 Admitting Diagnosis Hypercalcemia nausea abdominal pain Labs/Diagnostic Data: Laboratory Results Test 01/06/24 05:55 01/05/24 18:53 01/05/24 05:40 01/04/24 14:40 Sodium Level 141 mmol/L (136-145) Potassium Level 3.2 mmol/L (3.5-5.1) Chloride Level 112 mmol/L (98-107) Carbon Dioxide Level 22 mmol/L (20-31) Anion Gap 7 (5-15) Blood Urea Nitrogen 9 mg/dL (9-23) Creatinine 0.84 mg/dL (0.550-1.02) Glomerular Filtration Rate Calc 77 mL/min (>90) BUN/Creatinine Ratio 10.7 (10.0-20.0) Serum Glucose 139 mg/dL (74-106) POC Glucose 138 mg/dl (70-106) Calcium Level 12.0 mg/dL (8.7-10.4) Phosphorus Level 1.3 mg/dL (2.4-5.1) Total Bilirubin 0.3 mg/dL (0.2-1.0) Aspartate Amino Transferase (AST) 15 U/L (13-40) Alanine Aminotransferase (ALT) < 9 U/L (7-40) Alkaline Phosphatase 141 U/L (46-116) Total Protein 5.6 g/dL (5.7-8.2) Albumin 3.3 g/dL (3.2-4.8) Magnesium Level 1.9 mg/dL (1.6-2.6) Ionized Calcium 7.1 mg/dL (4.5-5.6) Parathyroid Hormone (Intact) 1144.4 pg/mL (18.4-80.1) Hepatitis B Surface Antigen Negative (Negative) Hepatitis C Antibody Negative (Negative) Prothrombin Time 11.5 sec (9.3-11.8) Prothrombin Time INR 1.09 (0.9-1.15) Activated Partial Thromboplast Time 24.5 SEC (24.5-34.5) Test 01/04/24 05:55 01/03/24 19:29 01/03/24 16:52 01/03/24 16:42 White Blood Count 10.3 10^3/uL (4.4-10.8) Red Blood Count 4.60 10^6/uL (4.0-5.20) Hemoglobin 14.3 g/dL (12.2-16.2) Hematocrit 41.0 % (36.0-46.0) Mean Corpuscular Volume 89.1 fL (80.0-100.0) Mean Corpuscular Hemoglobin 31.0 pg (28.0-32.0) Mean Corpuscular Hemoglobin Concent 34.8 g/dL (32.0-36.0) Red Cell Distribution Width 13.7 % (11.8-14.3) Platelet Count 240 10^3/uL (140-450) Mean Platelet Volume 9.3 fL (6.9-10.8) Neutrophils (%) (Auto) 78.9 % (37.0-80.0) Lymphocytes (%) (Auto) 13.7 % (10.0-50.0) Monocytes (%) (Auto) 6.7 % (0.0-12.0) Eosinophils (%) (Auto) 0.3 % (0.0-7.0) Basophils (%) (Auto) 0.4 % (0.0-2.0) Neutrophils # (Auto) 8.1 10 ^3/uL (1.6-8.6) Lymphocytes # (Auto) 1.4 10 ^3/uL (0.4-5.4) Monocytes # (Auto) 0.7 10 ^3/uL (0-1.3) Eosinophils # (Auto) 0 10 ^3/uL (0-0.8) Basophils # (Auto) 0 10 ^3/uL (0-0.2) Nucleated Red Blood Cells 0.0 % Troponin I High Sensitivity 17 ng/L (</=34) Lipase 32 U/L (12-53) Urine Opiates Screen Neg (NEGATIVE) Urine Fentanyl Screen Neg (NEGATIVE) Urine Barbiturates Screen Neg (NEGATIVE) Urine Phencyclidine Screen Neg (NEGATIVE) Urine Amphetamines Screen Neg (NEGATIVE) Urine Benzodiazepines Screen Neg (NEGATIVE) Urine Cocaine Screen Neg (NEGATIVE) Urine Cannabinoids Screen Neg (NEGATIVE) Urine Color Yellow (Yellow) Urine Clarity Turbid (Clear) Urine pH 5.5 (5.0-9.0) Urine Specific [place] 1.017 (1.001-1.035) Urine Protein Trace (Negative) Urine Ketones 1+ (Negative) Urine Blood Negative /uL (Negative) Urine Nitrite 2+ (Negative) Urine Bilirubin Negative (Negative) Urine Urobilinogen Normal mg/dL (Negative) Urine Leukocyte Esterase 2+ /uL (Negative) Urine RBC <1 /hpf (0 - 4) Urine WBC 79 /hpf (0 - 5) Urine Squamous Epithelial Cells Few /hpf (<5) Urine Calcium Oxalate Crystals Few (None Seen) Urine Bacteria Few /hpf (None Seen) Urine Mucus Few (None Seen) Urine Glucose Normal mg/dL (Normal) Test 01/03/24 16:12 Lactic Acid Level 1.6 mmol/L (0.4-2.0) B-Type Natriuretic Peptide 9.92 pg/mL (0-100) Other Laboratory Tests 01/06/24 05:55 01/04/24 05:55 Brief Hx & Hospital Course: This is a 63 years old female with past medical history of diabetes mellitus type 2 and hypertension. Patient was admitted in November, for metabolic encephalopathy due to hypercalcemia (19.1) with elevated PTH over 1999. CT chest revealed posterior mediastinal mass extending into the neck. Parathyroid scan revealed no scintigraphic evidence for parathyroid adenoma in the neck. GI team performed EGD with biopsy and television news reporter also performed bronchoscopy with biopsy. Both pathology reports were negative for malignancies. Consultation by the Cardiothoracic surgeon recommended patient get fine-needle aspiration (FNA) at a higher level center. Hypercalcemia was managed with fluids and bisphosphonates and patient was finally discharged when her calcium was stable around 12.3. Since discharge, patient had not follow up with any providers but reported to the discharge clinic on 01/03/2024 with severe nausea, vomiting, and generalized abdominal pain. Patient had a stat serum calcium which showed Ca: 15.5. Patient was transferred to the ED for further evaluation and management. Further lab workup revealed serum creatinine 0.96, GFR 66, alkaline phosphatase 232, serum phosphorus 2.0, lipase of 32. The abdomen revealed peripancreatic fat stranding highly suspicious for acute interstitial pancreatitis. Findings similar to prior CT. No fluid collection. 2. Colonic diverticulosis with fat stranding surrounding the proximal sigmoid colon. The colon is collapse in this location and wall thickening. Patient was kept NPO, given IV fluid and Zoledronic acid. Her symptoms improved. She was also seen by the Nephrology for Ca control. Phosphorus was held because it would precipitate form calcium phosphate and that would exacerbate pancreatitis. Today, her calcium level was 12.0 and she denied any abdominal pain nausea and vomiting. Overall, patient is stable and will discharge home. Patient advised to follow up with her PCP for a referral to an boiler maker and eyal/oncologist. Consults/Reason for consult Reason for Consultation: hypercalcemia Operations or Procedures ORDERING PHYSICIAN: ROCCO DENTON PROCEDURE(s): CXR1 - CHEST XRAY 1 VIEW REASON: PVC ORDER NUMBER(s): [id number], ACCESSION NUMBER(s): [id number] EXAM: XY CHEST XRAY 1 VIEW Indication: PVC, pain Technique: Single frontal view of the chest was obtained Comparison: XY CHEST XRAY 1 VIEW on DOS: 12/13/23, XY CHEST PORTABLE on DOS: 12/13/23, XY CHEST XRAY 1 VIEW on DOS: 11/26/23 FINDINGS: Lines and Tubes: None Lungs: No focal consolidation. Pleura: No effusion. No pneumothorax. Cardiomediastinal contours: Unremarkable Bones: No acute osseous abnormality. IMPRESSION: No acute cardiopulmonary disease. ATED BY: JOVANA DYSON MD DICTATED DATE/TIME: 01/05/24 1111 ORDERING PHYSICIAN: KANWAL GALE PROCEDURE(s): ABPL - CT AB PEL WO CON-NO ORAL OR IV REASON: pancreatitis ORDER NUMBER(s): [id number], ACCESSION NUMBER(s): [id number] Exam: CT CT AB PEL WO CON-NO ORAL OR IV History: pancreatitis Comparison Study: CT scan of the abdomen pelvis dated 11/26/2023. TECHNIQUE: Multidetector CT of the abdomen and pelvis was performed from lung bases to ischial tuberosities. Imaging was performed without IV contrast using axial images. Coronal and sagittal reformats were obtained from the axial data set by the technologist. Radiation Dose Information: CT Dose: CTDI volume is [CTDIvol] mGy. Dose-length product is 1175.26 mGy*cm FINDINGS: Evaluation of solid organs is limited due to lack of intravenous contrast use. Findings: Lung Bases: No acute or significant lung base finding. Normal heart size. No pleural or pericardial effusion. Liver: The liver is normal in size. No focal lesions. Gallbladder and Biliary Tree: Gallstones. No biliary ductal dilatation. Spleen: Unremarkable Pancreas: There is peripancreatic fat stranding. Adrenal Glands: Unremarkable Kidneys: Kidneys are grossly normal without calculi or hydronephrosis. GI Tract: The stomach is grossly normal in appearance. The small bowel is normal in caliber. There is colonic diverticulosis. There is mild fat stranding surrounding the proximal sigmoid colon. The colon is collapsed in this location and wall thickening is difficult to exclude. Normal appendix is visualized in the right lower quadrant without findings of appendicitis. Peritoneal cavity: No pneumoperitoneum. No ascites. No fluid collection. Lymphadenopathy: No mesenteric, retroperitoneal or periportal lymphadenopathy. Abdominal Wall and Mesentery: Unremarkable. Vasculature: The visualized abdominal aorta is normal in size and caliber. Evaluation of abdominal and pelvic vessels is limited due to lack of intravenous contrast. Pelvic Organs: 4.0 cm left adnexal cystic esion noted. Uterus is unremarkable. Urinary Bladder: Grossly unremarkable for degree of distention. Musculoskeletal: No aggressive focal bony lesions, acute fractures or dislocation. Multilevel lumbar spondylosis. Soft tissues: Unremarkable IMPRESSION: 1. Peripancreatic fat stranding highly suspicious for acute interstitial pancreatitis. Findings similar to prior CT. No fluid collection. 2. Colonic diverticulosis with fat stranding surrounding the proximal sigmoid colon. The colon is collapse in this location and wall thickening is therefore difficult to exclude. Acute diverticulitis can not be excluded. 3. Left adnexal cystic lesion measuring 4.0 cm. Radiation optimization: All CT scans at this facility use at least one of these dose optimization techniques: automated exposure control mA and/or kV adjustment per patient size (includes targeted exams where dose is matched to clinical indication) or iterative reconstruction. ATED BY: JESIKA LOPEZ MD DICTATED DATE/TIME: 01/04/24 1116 Condition at Discharge: Stable Final Diagnosis/Problems List hypercalcemia posterior mediasternal mass UTI SNEHAL due to [facility] Discharge Disposition: Home Discharge Instruct/Medications Diet: See Comment Diet comment: Advance diet as she can tolerate Activity: Light activity Follow Up/Referral: 7-14 days Medications: cetriaxone metronidazole Discharge Statement: "Patient was advised to return to the ER or call 911 if any headaches, dizziness, shortness of breath, chest pain, abdominal pain, bleeding, fevers, or worsening of medical condition. Patient was counseled about treatment plan, medications, possible side effects, patientverbalized understanding. All questions were answered to the best of my ability. This discharge took greater then 30 minutes in planning, reviewing documentation, counseling the patient, and discussing with other team members." ASSESSMENT ASSESSMENT Assessment hypercalcemia posterior mediasternal mass UTI SNEHAL Date of Service: Jan 06, 2024 Billing Provider: RUPERTO RODRIGUEZ MD Common Visit Codes: 32069-IHQ/OBS DISCH DAY >30min CLARISSA SAAB RESIDENT Jan 06, 2024 19:59 RUPERTO RODRIGUEZ MD Jan 08, 2024 09:23
== END 2024-01-06 21:40 | disposition home or self-care (01) | DRG 438 ==
LOC: ER 13:55 → OVERFLOW 20:45 → WEST WING 01-04 21:18
PROVIDERS: ADMIT Student in an Organized Health Care Education/Training Program; ATTEND Student in an Organized Health Care Education/Training Program
DX: K85.90 Acute pancreatitis without necrosis or infection, unspecified (principal); N17.0 Acute kidney failure with tubular necrosis; N39.0 Urinary tract infection, site not specified; E83.52 Hypercalcemia; E83.39 Other disorders of phosphorus metabolism; I10 Essential (primary) hypertension; E11.9 Type 2 diabetes mellitus without complications; F43.10 Post-traumatic stress disorder, unspecified; Z90.710 Acquired absence of both cervix and uterus; Z82.49 Family history of ischemic heart disease and other diseases of the circulatory system; Z82.5 Family history of asthma and other chronic lower respiratory diseases; Z83.3 Family history of diabetes mellitus
CPT/HCPCS: 36415; 71045; 74176; 80053; 80307; 81001; 82306; 82310; 82330; 82962; 83605; 83690; 83735; 83880; 83970; 84100; 84484; 85025; 85610; 85730; 86803; 87081; 87086; 87340; G0378; J1815; J1885; J2405; J2470; J3489; J3490

== ENCOUNTER → 2024-01-03 | Outpatient (CLI) | payer MEDICARE ==
[2024-01-03 13:09] LABS: Albumin 4.5 g/dL (3.2-4.8); Alkaline Phosphatase 225 U/L (46-116); Anion Gap 8 (5-15); Aspartate Aminotransferase 16 U/L (13-40); BUN/Creatinine Ratio 8.2 (10.0-20.0); Bilirubin, Total 0.6 mg/dL (0.2-1.0); Blood Urea Nitrogen 8 mg/dL (9-23); Carbon Dioxide 24 mmol/L (20-31); Chloride 104 mmol/L (98-107); Glucose 203 mg/dL (74-106); Potassium 3.8 mmol/L (3.5-5.1); Sodium 136 mmol/L (136-145); Total Protein 7.7 g/dL (5.7-8.2)
[2024-01-03 13:26] LABS: Alanine Aminotransferase 16 U/L (7-40)
[2024-01-03 13:33] LABS: Calcium 15.4 mg/dL (8.7-10.4)
== END | disposition home or self-care (01) ==
LOC: LAB 11:45
PROVIDERS: ATTEND Internal Medicine
DX: E87.6 Hypokalemia (principal)
CPT/HCPCS: 36415; 80053; 82330

== ENCOUNTER 2024-07-26 15:56 | Outpatient (CLI) | payer MEDICARE ==
[~2024-07-26 15:56] MED LIST: CEPH250C PO; METR-344 PO
[2024-07-26 16:09] LABS: Basophils # (auto) 0 10 ^3/uL (0-0.2); Basophils % (auto) 0.5 % (0.0-2.0); Eosinophils # (auto) 0.1 10 ^3/uL (0-0.8); Eosinophils % (auto) 1.7 % (0.0-7.0); Hematocrit 34.6 % (36.0-46.0); Hemoglobin 11.8 g/dL (12.2-16.2); Lymphocytes # (auto) 1.7 10 ^3/uL (0.4-5.4); Lymphocytes % (auto) 28.1 % (10.0-50.0); Mean Corpuscular Hemoglobin 28.3 pg (28.0-32.0); Mean Corpuscular Hgb Conc. 34.2 g/dL (32.0-36.0); Mean Corpuscular Volume 82.6 fL (80.0-100.0); Monocytes # (auto) 0.3 10 ^3/uL (0-1.3); Monocytes % (auto) 4.9 % (0.0-12.0); Neutrophils % (auto) 64.8 % (37.0-80.0); Nucleated Red Blood Cells % 0.1 %; Platelet Count (auto) 242 10^3/uL (140-450); Red Blood Cells 4.19 10^6/uL (4.0-5.20); Red Cell Distribution Width 14.7 % (11.8-14.3); White Blood Cell 6.2 10^3/uL (4.4-10.8)
[2024-07-26 17:09] LABS: Albumin 4.3 g/dL (3.2-4.8); Alkaline Phosphatase 96 U/L (46-116); Anion Gap 9 (5-15); Aspartate Aminotransferase 11 U/L (0-34); BUN/Creatinine Ratio 25.4 (10.0-20.0); Blood Urea Nitrogen 18 mg/dL (9-23); Calcium 8.7 mg/dL (8.7-10.4); Carbon Dioxide 27 mmol/L (20-31); Chloride 105 mmol/L (98-107); Potassium 3.9 mmol/L (3.5-5.1); Sodium 141 mmol/L (136-145)
[2024-07-26 17:10] LABS: Alanine Aminotransferase 9 U/L (7-40); Bilirubin, Total 0.5 mg/dL (0.2-1.0); Glucose 143 mg/dL (74-106)
== END 2024-07-26 17:00 | disposition home or self-care (01) ==
LOC: LAB 15:56
PROVIDERS: ATTEND Internal Medicine
DX: C75.0 Malignant neoplasm of parathyroid gland (principal); E11.42 Type 2 diabetes mellitus with diabetic polyneuropathy
CPT/HCPCS: 36415; 80053; 83970; 84439; 85025